=== PATIENT | male | born 1960 | race Caucasian/White ===

== ENCOUNTER → 2017-03-17 | Outpatient (CLI) | payer OTHER ==
[~2017-03-17] MED LIST: CARI350T28 PO; LRT5 PO
--- NOTE | 2017-03-17 09:33 | DIAGNOSTIC IMAGING REPORT ---
CHEST 2 VIEWS ROUTINE CLINICAL HISTORY: 56 years-old Male presenting with CHRONIC COUGH. TECHNIQUE: PA and lateral views of the chest were obtained. COMPARISON: 04/20/2010. FINDINGS: Cardiomediastinal silhouette normal. Left basilar opacity and left pleural effusion. Right lung and pleural space clear. No pneumothorax. Osseous structures normal. Upper abdomen normal. IMPRESSION: 1. Left basilar consolidation and left pleural effusion. This is concerning for pneumonia with a parapneumonic effusion. Electronically signed by: Thomas Ch M.D. 03/17/2017 9:32 AM Dictated Date/Time: 03/17/2017 9:31 AM
== END | disposition home or self-care (01) ==
LOC: C.RAD1850 09:23
PROVIDERS: ATTEND Student in an Organized Health Care Education/Training Program
DX: R05 Cough (principal)

== ENCOUNTER 2017-03-23 10:58 | Inpatient (IN) | payer OTHER ==
[~2017-03-23] VITALS: Ht 172.7 cm; Wt 120.0 kg
[2017-03-23] MEDS ORDERED: ONDANSETRON INJ 2 MG/ML 2 ML VIAL IV STA (11:11)
--- NOTE | 2017-03-23 11:30 | DIAGNOSTIC IMAGING REPORT ---
CHEST ONE VIEW PORTABLE CLINICAL HISTORY: Atypical chest pain COMPARISON STUDY: 03/17/2017 FINDINGS: The cardiac and be spinal contours remain stable. There is a persistent left pleural effusion with associated left lower lobe airspace opacities with air bronchograms.[ The right lung remains clear. IMPRESSION: Persistent left pleural effusion with associated left lower lobe airspace opacities and air bronchograms Electronically signed by: Juan Joe M.D. 03/23/2017 11:29 AM Dictated Date/Time: 03/23/2017 11:28 AM
[2017-03-23 11:40] LABS: BASO % 1.2 %; BASO ABS # 0.04 K/uL (0-0.2); EOS % 1.2 %; EOS ABS # 0.04 K/uL (0-0.5); HEMATOCRIT 36.5 % (42-52); LYMPH % 21.9 %; LYMPH ABS # 0.73 K/uL (1.2-3.4); MEAN CORPUSCULAR HEMOGLOBIN 40.2 pg (25-34); MEAN CORPUSCULAR HGB CONC 35.6 g/dl (32-36); MONO % 7.5 %; MONO ABS # 0.25 K/uL (0.11-0.59); NEUT % 68.2 %; NEUT ABS # 2.28 K/uL (1.4-6.5); PLATELET COUNT 198 K/uL (130-400); RED CELL DISTRIBUTION WIDTH CV 14.1 % (11.5-14.5); RED CELL DISTRIBUTION WIDTH SD 58.8 fL (36.4-46.3); WHITE BLOOD COUNT 3.34 K/uL (4.8-10.8)
--- NOTE | 2017-03-23 11:55 | EMERGENCY ROOM VISIT NOTE ---
History First contact with patient: 11:05 Chief Complaint: CHEST PAIN Stated Complaint: Epigastric Pain Nursing Triage Summary: pt arrived als from home reported chest pain started at 0730 epigastric into back pt reports cough for a "very long time" seen by pcp last week sob while at rest given [address] route History of Present Illness The patient is a 56 year old male who presents to the Emergency Room with complaints of chest pain that radiates into his back along with epigastric pain. The patient appears somewhat sedate and is slow to answer questions. He reports that he has had a cough for the past 3 weeks and he called off sick from work today. Possibly in one hour after he called off sick he began experiencing chest pain. Nothing seems to make the chest pain better or worse. He was given aspirin by EMS prior to arrival in the emergency department. Review of Systems See HPI for pertinent positives & negatives. A total of 10 systems reviewed and were otherwise negative. Past Medical/Surgical History Medical Problems: (1) Ascites (2) Epigastric abdominal pain Social History Smoking Status: Former Smoker Marital Status: single, Occupation Status: employed Current/Historical Medications Scheduled Albuterol Hfa (Ventolin Hfa), 2-4 PUFFS INH Q6H Physical Exam Vital Signs Date Time Temp Pulse Resp B/P (MAP) Pulse Ox O2 Delivery O2 Flow Rate FiO2 03/23/17 14:09 157/101 03/23/17 14:05 98 23 94 03/23/17 13:35 99 21 97 03/23/17 13:05 94 17 95 03/23/17 13:00 162/97 03/23/17 12:35 98 19 94 03/23/17 12:30 175/92 03/23/17 12:28 96 20 94 03/23/17 12:00 170/92 03/23/17 11:58 97 18 95 03/23/17 11:54 97 Nasal Cannula 2.0 03/23/17 11:54 181/88 03/23/17 11:34 91 Room Air 03/23/17 11:28 98 95 03/23/17 11:24 99 03/23/17 11:11 181/163 03/23/17 11:10 160/98 181/163 03/23/17 11:10 91 Room Air 03/23/17 11:09 160/98 03/23/17 11:08 93 Room Air 03/23/17 11:03 176/104 03/23/17 11:03 36.7 95 18 176/104 93 Room Air Physical Exam GENERAL: Patient is a pale-appearing well-nourished male HEAD: Normocephalic atraumatic EYES: Ocular movements intact pupils equal and react to light OROPHARYNX mucous membranes are moist no exudates present no erythema or edema present NECK: Supple no nuchal rigidity CHEST: Good equal expansion LUNGS: Clear and equal to auscultation CARDIAC: Normal S1 and S2 ABDOMEN: Soft nontender no guarding, distended BACK: No CVA tenderness EXTREMITIES: No pain upon palpation normal muscle strength in all groups no clubbing cyanosis or edema NEURO: Patient is following commands is answering questions appropriately. Alert and oriented x3 Cranial Nerves 2-12 grossly intact Medical Decision & Procedures ER Provider Diagnostic Interpretation: [~ rep ct add3]] CHEST ONE VIEW PORTABLE CLINICAL HISTORY: Atypical chest pain COMPARISON STUDY: 03/17/2017 FINDINGS: The cardiac and be spinal contours remain stable. There is a persistent left pleural effusion with associated left lower lobe airspace opacities with air bronchograms.[ The right lung remains clear. IMPRESSION: Persistent left pleural effusion with associated left lower lobe airspace opacities and air bronchograms Electronically signed by: Juan Joe M.D. 03/23/2017 11:29 AM Dictated Date/Time: 03/23/2017 11:28 AM Laboratory Results Test 03/23/17 11:25 03/23/17 11:32 03/23/17 11:50 03/23/17 13:19 Immature Granulocyte % (Auto) 0.0 % White Blood Count 3.34 K/uL (4.8-10.8) Red Blood Count 3.23 M/uL (4.7-6.1) Hemoglobin 13.0 g/dL (14.0-18.0) Hematocrit 36.5 % (42-52) Mean Corpuscular Volume 113.0 fL (80-100) Mean Corpuscular Hemoglobin 40.2 pg (25-34) Mean Corpuscular Hemoglobin Concent 35.6 g/dl (32-36) Platelet Count 198 K/uL (130-400) Mean Platelet Volume 9.0 fL (7.4-10.4) Neutrophils (%) (Auto) 68.2 % Lymphocytes (%) (Auto) 21.9 % Monocytes (%) (Auto) 7.5 % Eosinophils (%) (Auto) 1.2 % Basophils (%) (Auto) 1.2 % Neutrophils # (Auto) 2.28 K/uL (1.4-6.5) Lymphocytes # (Auto) 0.73 K/uL (1.2-3.4) Monocytes # (Auto) 0.25 K/uL (0.11-0.59) Eosinophils # (Auto) 0.04 K/uL (0-0.5) Basophils # (Auto) 0.04 K/uL (0-0.2) Immature Granulocyte # (Auto) 0.00 K/uL (0.00-0.02) Macrocytosis PRESENT Prothrombin Time 15.4 SECONDS (9.0-12.0) Prothromb Time International Ratio 1.5 (0.9-1.1) Activated Partial Thromboplast Time 32.7 SECONDS (21.0-31.0) Partial Thromboplastin Ratio 1.3 Total Creatine Kinase 94 U/L (39-308) Creatine Kinase MB 1.9 ng/ml (0.5-3.6) Creatine Kinase MB Ratio 2.0 (0-3.0) Troponin I 0.017 ng/ml (0-0.045) Lipase 323 U/L (73-393) Bedside Hemoglobin 12.9 g/dl (14.0-18.0) Bedside Hematocrit 38 % (42-52) Bedside Sodium 134 mEq/L (135-144) Bedside Potassium 3.0 mEq/L (3.3-5.0) Bedside Chloride 90 mEq/L (101-112) Bedside Total CO2 30 mEq/l (24-31) Bedside Blood Urea Nitrogen 4 mg/dl (7-18) Bedside Creatinine 1.0 mg/dl (0.6-1.3) Bedside Glucose (other) 130 mg/dl (70-99) Bedside Ionized Calcium (Alexa) 1.15 mmol/l (1.12-1.32) Influenza Type A Antigen Neg for Influ A (NEG) Influenza Type B Antigen Neg for Influ B (NEG) Monoscreen NEG (NEG) Medications Administered Medications (Trade) Dose Ordered Sig/Myron Route Start Time Stop Time Status Last Admin Dose Admin Ondansetron HCl (Zofran Inj) 4 mg NOW STAT IV 03/23/17 11:11 03/23/17 11:13 DC 03/23/17 11:25 4 MG Cefepime HCl 2000 mg/Dextrose 122 ml @ 200 mls/hr NOW STAT IV 03/23/17 12:00 03/23/17 12:36 DC 03/23/17 12:21 200 MLS/HR Vancomycin HCl (Vancomycin 1gm/ 270ml Nss) 1 gm NOW STAT IV 03/23/17 12:00 03/23/17 12:02 DC 03/23/17 12:25 1 GM Clonidine HCl (Kxjodqur-Aeo-0 0.3mg/24hr Patch) 1 patch NOW STAT TD 03/23/17 12:12 03/23/17 12:13 DC 03/23/17 12:31 1 PATCH Thiamine HCl (Vitamin B-1 Tab) 100 mg NOW STAT PO 03/23/17 12:53 03/23/17 12:55 DC 03/23/17 13:22 100 MG Folic Acid (Folvite Tab) 1 mg NOW STAT PO 03/23/17 12:53 03/23/17 12:55 DC 03/23/17 13:22 1 MG Potassium Chloride (Sarahi Ciel Elix) 40 meq NOW STAT PO 03/23/17 12:53 03/23/17 12:55 DC 03/23/17 13:13 40 MEQ Potassium Chloride (Sarahi Ciel Elix) 40 meq NOW STAT PO 03/23/17 13:20 03/23/17 13:21 DC 03/23/17 13:20 40 MEQ Spironolactone (Aldactone Tab) 100 mg 1416 ONCE PO 03/23/17 14:16 03/23/17 15:43 DC 03/23/17 17:01 100 MG Furosemide (Lasix Tab) 40 mg 1416 ONCE PO 03/23/17 14:16 03/23/17 15:43 DC 03/23/17 17:02 40 MG Medical Decision This is a 56-year-old male that presents emergency department complaining of chest and abdomen pain. Upon arrival to the emergency department patient is diaphoretic and appears to be in distress. This is a 56-year-old male who presents emergency department complaining of chest pain as well as abdominal pain. Patient has pleural effusion on CAT scan that I believe is responsible for his chest pain. In addition the patient has a large amount of ascites. He is a heavy drinker and drinks 3 glasses of Darrel Beam a day due to the large effusion I did discuss the case with the hospitalist service who agreed to admit the patient. Patient was given Zofran in the emergency department.. Impression Primary Impression: Ascites Additional Impressions: Epigastric abdominal pain Pleural effusion Departure Information Dispostion Home / Self-Care Referrals No Doctor, Assigned (PCP) Patient Instructions My [facility] Problem Qualifiers Primary Impression: Ascites Ascites type: other type Qualified Codes: R18.8 - Other ascites
[2017-03-23 11:58] LABS: ALBUMIN 2.9 gm/dl (3.4-5.0); CALCIUM 9.8 mg/dl (8.5-10.1); CREATININE 0.93 mg/dl (0.60-1.40); POTASSIUM 2.9 mmol/L (3.5-5.1)
[2017-03-23] MEDS ORDERED: CEFEPIME IV 2,000 MG in DEXTROSE 5% 100ML 100 ML IV STA (12:00)
[2017-03-23] MEDS ORDERED: VANCOMYCIN 1GM/270ML NSS IV STA (12:00)
[2017-03-23 12:04] LABS: CKMB 1.9 ng/ml (0.5-3.6); TOTAL PROTEIN 8.5 gm/dl (6.4-8.2)
--- NOTE | 2017-03-23 12:05 | DIAGNOSTIC IMAGING REPORT ---
CT ANGIOGRAM OF THE CHEST COMBO CLINICAL HISTORY: Atypical chest pain. COMPARISON STUDY: Chest x-ray dated 03/23/2017. TECHNIQUE: Before and following the IV administration of 119 cc of Optiray 320, CT angiogram of the chest was performed from the thoracic inlet to the upper abdomen utilizing the dissection protocol. Images are reviewed in the axial, sagittal, and coronal planes. 3-D MIPS images are created and assessed. IV contrast was administered without complication. A dose lowering technique was utilized adhering to the principles of ALARA. The examination is degraded by streak artifact from the patient's arms which could not be elevated above the chest as well as by motion. CT DOSE: 4879.21 mGy.cm FINDINGS: Thyroid: Imaged portions of the thyroid gland are normal in size and attenuation. Thoracic aorta: No intramural hematoma is seen on the unenhanced series. There is mild atherosclerotic calcification of the thoracic aorta, which is normal in caliber and demonstrates standard 3-vessel arch anatomy. No dissection is seen. The arch vessels are widely patent. Pulmonary vasculature: The pulmonary trunk is normal in caliber. There are no central filling defects identified in the pulmonary vessels to suggest pulmonary embolus. The pulmonary vessels are not well opacified as this examination was not specifically protocoled to assess for pulmonary emboli. Heart: The heart is normal in size and without pericardial effusion. Lungs and pleural spaces: The trachea and central airways are clear. Mild emphysematous change is suspected. There is a moderate left pleural effusion with associated consolidation. The right lung is clear. Mediastinum: There is no mediastinal lymphadenopathy. Gini: Clear. Axillae: There is no axillary lymphadenopathy. Upper abdomen: The liver is cirrhotic in morphology and heterogeneous attenuation. There is a small to moderate volume of abdominal ascites. The spleen appears enlarged. There is a mildly enlarged lymph node the esophageal hiatus seen image 20 and 33 measuring 1.7 x 1.6 cm. See report of abdominal CT performed concurrently for detailed intra-abdominal findings. Skeletal structures: No lytic or blastic bony lesions are seen. IMPRESSION: 1. Unremarkable CT angiogram of the thoracic aorta. 2. Moderate left pleural effusion with associated consolidation. This likely represent atelectasis. Correlate clinically for evidence of superimposed pneumonia. 3. The right lung is clear. 4. Cirrhotic liver morphology, splenomegaly, and ascites are noted in the upper abdomen. 5. An enlarged lymph node is seen at the esophageal hiatus measuring 1.7 x 1.6 cm. This is of indeterminant significance. 6. Additional findings as above. Electronically signed by: Magan Merrill M.D. 03/23/2017 12:04 PM Dictated Date/Time: 03/23/2017 11:56 AM
--- NOTE | 2017-03-23 12:09 | DIAGNOSTIC IMAGING REPORT ---
HEAD CT NONCONTRAST CT DOSE: HISTORY: Altered mental status. TECHNIQUE: Multiaxial CT images of the head were performed without the use of intravenous contrast. Automated exposure control was utilized for this study. A dose lowering technique was utilized adhering to the principles of ALARA. Comparison: None. Findings: The paranasal sinuses and mastoid air cells are clear. The calvarium and skull base are intact. The ventricles and sulci are within normal limits. There is no mass, hematoma, midline shift, or acute infarct. Impression: No acute intracranial abnormality. Electronically signed by: Jackson Barbosa M.D. 03/23/2017 12:07 PM Dictated Date/Time: 03/23/2017 11:55 AM
[2017-03-23] MEDS ORDERED: CLONIDINE HCL 0.3 MG/24 HR TRANSDERM SYS TD STA (12:12)
[2017-03-23] MEDS ORDERED: VNTHFA/IN INH (12:14)
--- NOTE | 2017-03-23 12:18 | DIAGNOSTIC IMAGING REPORT ---
CT ABD/PELVIS IV CONTRAST ONLY CLINICAL HISTORY: Epigastric pain COMPARISON STUDY: None. TECHNIQUE: Following the IV administration of 119 mL of Optiray-320, CT scan of the abdomen and pelvis was performed from the lung bases to the proximal femurs. Images are reviewed in the axial, sagittal, and coronal planes. IV contrast was administered without complication. A dose lowering technique was utilized adhering to the principles of ALARA. CT DOSE: FINDINGS: Lower chest: There is a moderate left pleural effusion with left lower lobe atelectatic change. Liver: No focal hepatic masses are visualized. Early nodularity of the serosal surface of the liver cannot be excluded. Clinical correlation regards to cirrhosis is recommended. Gallbladder: Unremarkable. Spleen: The spleen is enlarged measuring 15 cm. Spleen is lobulated. Pancreas: Unremarkable. Adrenal glands: Unremarkable. Kidneys: There is symmetric renal cortical enhancement. The kidneys are normal in size without hydronephrosis. Bowel: There are no transition zones to indicate bowel obstruction. No acute inflammatory changes are visualized. Peritoneum: There is a moderate to large volume of ascites. No free intraperitoneal air is visualized. A virus the anterior abdominal wall is slightly limited due to artifact given the patient's distended abdomen. Vasculature: The abdominal aorta is normal in course and caliber. Adenopathy: There are mildly prominent para-aortic, iliac, and common femoral lymph nodes. There is also a prominent lymph node in the right cardiophrenic fat. Pelvic viscera: The bladder, and pelvic viscera are unremarkable. Skeletal structures: No destructive osseous lesions are seen. IMPRESSION: 1. Moderate left pleural effusion with left lower lobe atelectasis/consolidation 2. Possible cirrhotic morphology of the liver. Splenomegaly 3. No evidence of bowel obstruction. No evidence of free air 4. Mildly prominent para-aortic, iliac, and common femoral lymph nodes 5. Moderate to large volume ascites Electronically signed by: Juan Joe M.D. 03/23/2017 12:16 PM Dictated Date/Time: 03/23/2017 12:10 PM
[2017-03-23 12:36] LABS: INFLUENZA B ANTIGEN Neg for Influ B (NEG)
[2017-03-23] MEDS ORDERED: POTASSIUM CHLORIDE 20 MEQ/15 ML UDC PO STA ×2 (12:53→13:20)
[2017-03-23] MEDS ORDERED: THIAMINE HCL 100 MG TAB PO STA (12:53)
[2017-03-23 13:09] LABS: ISTAT IONIZED CALCIUM 1.15 mmol/l (1.12-1.32)
[2017-03-23] MEDS ORDERED: MAGNESIUM SULFATE 1GM / D5W 1 GM in PREMIXED IN D5W 100 ML IV STA (14:03)
[2017-03-23] MEDS ORDERED: MAGNESIUM HYDROXIDE SUSP 30 ML UDC PO PRN (14:15)
[2017-03-23] MEDS ORDERED: ALUMINUM/MAGNESIUM/SIMETH (MAALOX MAX) 30 ML UDC PO PRN (14:15)
[2017-03-23] MEDS ORDERED: ONDANSETRON INJ 2 MG/ML 2 ML VIAL IV PRN (14:15)
[2017-03-23] MEDS ORDERED: ACETAMINOPHEN 325 MG TAB PO PRN (14:15)
[2017-03-23] MEDS ORDERED: POLYETHYLENE (MIRALAX) 17 GM PACK PO PRN (14:15)
[2017-03-23] MEDS ORDERED: SPIRONOLACTONE 100 MG TAB PO ONE (14:16)
[2017-03-23] MEDS ORDERED: FUROSEMIDE 40 MG TAB PO ONE (14:16)
[2017-03-23] MEDS ORDERED: LORAZEPAM 1 MG TAB PO PRN (14:30)
[2017-03-23] MEDS ORDERED: MAGNESIUM SULFATE 1GM / D5W 1 GM BAG ONE (14:30)
[2017-03-23] MEDS ORDERED: CHLORDIAZEPOXIDE 25 MG CAP PO PRN (14:30)
[2017-03-23 14:39] VITALS: BP 179/82; PULSE 103; TEMP 36.8; O2SAT 94; Ht 172.7 cm; Wt 120.0 kg
[2017-03-23] MEDS ORDERED: ALBUTEROL HFA 8 GM INHALER INH PRN (14:45)
--- NOTE | 2017-03-23 14:45 | History and Physical ---
History & Physical Date & Time of Service: Mar 23, 2017 at 14:15 Chief Complaint: Epigastric Pain Primary Care Physician: No Doctor, Assigned History of Present Illness Source: patient, hospital records This is a 56 y/o male with a history of HTN, HLD, gout, and alcohol use who presented to the ED on 03/23 with epigastric pain radiating to the chest and back. The patient states that developed a sharp, 8/10 epigastric pain this morning around 8 am with associated shortness of breath. He denies any alleviating or aggravating factors. The pain then radiated to his chest where he felt a tightness and to his back. He states that he has had intermittent tightness for some time, sometimes associated with a dry cough that he has had for the last 5 months. He notes wheezing sometimes. The patient has been to the doctor several times for this ongoing cough and has completed 2 rounds of antibiotics and one round of prednisone with no relief. He also states that around he developed food poisoning. Since then, he has not been eating much and has lost about 45 pounds in the last month. He has not noticed any increase in his abdominal girth. The patient reports that up until the holidays he had been drinking 2-3 mixed drinks a night, but lately he has cut back to 2-3 drinks a week. He notes that he has had intermittent fevers since his cough started months ago but denies any recently. He also has intermittent post-tussive vomiting, but this morning he did vomit once without coughing. The patient denies chills, sweats, palpitations, claudication, nausea, dysuria, hematuria, urinary retention, diarrhea, paralysis, weakness, numbness and tingling. Past Medical/Surgical History HTN HLD Gout Alcohol use/abuse Family History Diabetes mellitus Myocardial infarction Stroke Social History Smoking Status: Former Smoker (quit 1986) Smokeless Tobacco Use: No Alcohol Use: heavy (had been drinking 2-3 mixed drinks a day until recently) Drug Use: none Marital Status: single, Housing status: lives with roommate Occupational Status: employed Multi-Drug Resistant Organisms History of MDRO: No Allergies Coded Allergies: Venlafaxine (Verified Allergy, Unknown, HIVES, 03/23/17) Home Medications Scheduled Albuterol Hfa (Ventolin Hfa), 2-4 PUFFS INH Q6H Review of Systems Constitutional: +Intermittent fevers, none currently. No chills, No sweats Eyes: No worsening of vision, No eye pain, No diplopia ENT: No hearing loss, No nasal symptoms, No trouble swallowing Respiratory: +Chronic cough x 5 months, intermittent wheezing. SOB. Cardiovascular: +Chest tightness. No claudication, No palpitations Abdomen: +Epigastric pain, vomiting. No nausea Musculoskeletal: No joint pain, No muscle pain, No swelling Genitourinary - Male: No dysuria, No urinary retention, No hematuria Neurologic: No paralysis, No weakness, No numbness/tingling Integumentary: No rash, No itch, No color change Physical Exam Vital Signs Date Time Temp Pulse Resp B/P (MAP) Pulse Ox O2 Delivery O2 Flow Rate FiO2 03/23/17 12:30 175/92 03/23/17 12:28 96 20 94 03/23/17 12:00 170/92 03/23/17 11:58 97 18 95 03/23/17 11:54 97 Nasal Cannula 2.0 03/23/17 11:54 181/88 03/23/17 11:34 91 Room Air 03/23/17 11:28 98 95 03/23/17 11:24 99 03/23/17 11:11 181/163 03/23/17 11:10 160/98 181/163 03/23/17 11:10 91 Room Air 03/23/17 11:09 160/98 03/23/17 11:08 93 Room Air 03/23/17 11:03 176/104 03/23/17 11:03 36.7 95 18 176/104 93 Room Air General appearance: +Obese. Well-developed, well-nourished, no apparent distress Head: Normocephalic, atraumatic Eyes: Normal inspection, PERRL, EOMI ENT: Normal ENT inspection, hearing grossly normal, pharynx normal Neck: Supple, no JVD, trachea midline Respiratory/Chest: +Decreased/absent lung sounds in left base up to mid lung zone, otherwise clear. Lungs clear to auscultation, no respiratory distress Cardiovascular: Regular rate & rhythm, no gallop, no murmur Abdomen/GI: +Distended, ascites. Epigastrium mildly TTP. Normal bowel sounds Extremities/Musculoskeletal: +1+ pitting edema. Normal inspection, no calf tenderness Neurological/Psych: Alert, normal mood/affect, oriented x 3 Skin: Normal color, warm/dry, no rash Diagnostics Laboratory Results Results Past 24 Hours Test 03/23/17 11:25 03/23/17 11:32 03/23/17 11:50 03/23/17 13:19 Range/Units White Blood Count 3.34 4.8-10.8 K/uL Red Blood Count 3.23 4.7-6.1 M/uL Hemoglobin 13.0 14.0-18.0 g/dL Hematocrit 36.5 42-52 % Mean Corpuscular Volume 113.0 80-100 fL Mean Corpuscular Hemoglobin 40.2 25-34 pg Mean Corpuscular Hemoglobin Concent 35.6 32-36 g/dl Platelet Count 198 130-400 K/uL Mean Platelet Volume 9.0 7.4-10.4 fL Neutrophils (%) (Auto) 68.2 % Lymphocytes (%) (Auto) 21.9 % Monocytes (%) (Auto) 7.5 % Eosinophils (%) (Auto) 1.2 % Basophils (%) (Auto) 1.2 % Neutrophils # (Auto) 2.28 1.4-6.5 K/uL Lymphocytes # (Auto) 0.73 1.2-3.4 K/uL Monocytes # (Auto) 0.25 0.11-0.59 K/uL Eosinophils # (Auto) 0.04 0-0.5 K/uL Basophils # (Auto) 0.04 0-0.2 K/uL RDW Standard Deviation 58.8 36.4-46.3 fL RDW Coefficient of Variation 14.1 11.5-14.5 % Immature Granulocyte % (Auto) 0.0 % Immature Granulocyte # (Auto) 0.00 0.00-0.02 K/uL Macrocytosis PRESENT Sodium Level 130 136-145 mmol/L Potassium Level 2.9 3.5-5.1 mmol/L Chloride Level 91 98-107 mmol/L Carbon Dioxide Level 32 21-32 mmol/L Anion Gap 7.0 17.0 16-25 mmol/L Blood Urea Nitrogen 6 7-18 mg/dl Creatinine 0.93 0.60-1.40 mg/dl Est Creatinine Clear Calc Drug Dose 115.0 ml/min Estimated GFR () 107.5 Estimated GFR (Non- 92.7 BUN/Creatinine Ratio 6.4 10-20 Random Glucose 126 70-99 mg/dl Calcium Level 9.8 8.5-10.1 mg/dl Total Bilirubin 3.3 0.2-1 mg/dl Direct Bilirubin 1.6 0-0.2 mg/dl Aspartate Amino Transf (AST/SGOT) 58 15-37 U/L Alanine Aminotransferase (ALT/SGPT) 26 12-78 U/L Alkaline Phosphatase 114 45-117 U/L Total Creatine Kinase 94 39-308 U/L Creatine Kinase MB 1.9 0.5-3.6 ng/ml Creatine Kinase MB Ratio 2.0 0-3.0 Troponin I 0.017 0-0.045 ng/ml Total Protein 8.5 6.4-8.2 gm/dl Albumin 2.9 3.4-5.0 gm/dl Lipase 323 73-393 U/L Bedside Hemoglobin 12.9 14.0-18.0 g/dl Bedside Hematocrit 38 42-52 % Bedside Sodium 134 135-144 mEq/L Bedside Potassium 3.0 3.3-5.0 mEq/L Bedside Chloride 90 101-112 mEq/L Bedside Total CO2 30 24-31 mEq/l Bedside Blood Urea Nitrogen 4 7-18 mg/dl Bedside Creatinine 1.0 0.6-1.3 mg/dl Bedside Glucose (other) 130 70-99 mg/dl Bedside Ionized Calcium (Alexa) 1.15 1.12-1.32 mmol/l Influenza Type A Antigen Neg for Influ A NEG Influenza Type B Antigen Neg for Influ B NEG Monoscreen NEG NEG Test 03/23/17 14:03 Range/Units Diagnostic Radiology Reviewed the following studies and agree with interpretation as follows: CHEST ONE VIEW PORTABLE CLINICAL HISTORY: Atypical chest pain COMPARISON STUDY: 03/17/2017 FINDINGS: The cardiac and be spinal contours remain stable. There is a persistent left pleural effusion with associated left lower lobe airspace opacities with air bronchograms.[ The right lung remains clear. IMPRESSION: Persistent left pleural effusion with associated left lower lobe airspace opacities and air bronchograms CT ANGIOGRAM OF THE CHEST COMBO CLINICAL HISTORY: Atypical chest pain. COMPARISON STUDY: Chest x-ray dated 03/23/2017. TECHNIQUE: Before and following the IV administration of 119 cc of Optiray 320, CT angiogram of the chest was performed from the thoracic inlet to the upper abdomen utilizing the dissection protocol. Images are reviewed in the axial, sagittal, and coronal planes. 3-D MIPS images are created and assessed. IV contrast was administered without complication. A dose lowering technique was utilized adhering to the principles of ALARA. The examination is degraded by streak artifact from the patient's arms which could not be elevated above the chest as well as by motion. CT DOSE: 4879.21 mGy.cm FINDINGS: Thyroid: Imaged portions of the thyroid gland are normal in size and attenuation. Thoracic aorta: No intramural hematoma is seen on the unenhanced series. There is mild atherosclerotic calcification of the thoracic aorta, which is normal in caliber and demonstrates standard 3-vessel arch anatomy. No dissection is seen. The arch vessels are widely patent. Pulmonary vasculature: The pulmonary trunk is normal in caliber. There are no central filling defects identified in the pulmonary vessels to suggest pulmonary embolus. The pulmonary vessels are not well opacified as this examination was not specifically protocoled to assess for pulmonary emboli. Heart: The heart is normal in size and without pericardial effusion. Lungs and pleural spaces: The trachea and central airways are clear. Mild emphysematous change is suspected. There is a moderate left pleural effusion with associated consolidation. The right lung is clear. Mediastinum: There is no mediastinal lymphadenopathy. Gini: Clear. Axillae: There is no axillary lymphadenopathy. Upper abdomen: The liver is cirrhotic in morphology and heterogeneous attenuation. There is a small to moderate volume of abdominal ascites. The spleen appears enlarged. There is a mildly enlarged lymph node the esophageal hiatus seen image 20 and 33 measuring 1.7 x 1.6 cm. See report of abdominal CT performed concurrently for detailed intra-abdominal findings. Skeletal structures: No lytic or blastic bony lesions are seen. IMPRESSION: 1. Unremarkable CT angiogram of the thoracic aorta. 2. Moderate left pleural effusion with associated consolidation. This likely represent atelectasis. Correlate clinically for evidence of superimposed pneumonia. 3. The right lung is clear. 4. Cirrhotic liver morphology, splenomegaly, and ascites are noted in the upper abdomen. 5. An enlarged lymph node is seen at the esophageal hiatus measuring 1.7 x 1.6 cm. This is of indeterminant significance. 6. Additional findings as above. CT ABD/PELVIS IV CONTRAST ONLY CLINICAL HISTORY: Epigastric pain COMPARISON STUDY: None. TECHNIQUE: Following the IV administration of 119 mL of Optiray-320, CT scan of the abdomen and pelvis was performed from the lung bases to the proximal femurs. Images are reviewed in the axial, sagittal, and coronal planes. IV contrast was administered without complication. A dose lowering technique was utilized adhering to the principles of ALARA. CT DOSE: FINDINGS: Lower chest: There is a moderate left pleural effusion with left lower lobe atelectatic change. Liver: No focal hepatic masses are visualized. Early nodularity of the serosal surface of the liver cannot be excluded. Clinical correlation regards to cirrhosis is recommended. Gallbladder: Unremarkable. Spleen: The spleen is enlarged measuring 15 cm. Spleen is lobulated. Pancreas: Unremarkable. Adrenal glands: Unremarkable. Kidneys: There is symmetric renal cortical enhancement. The kidneys are normal in size without hydronephrosis. Bowel: There are no transition zones to indicate bowel obstruction. No acute inflammatory changes are visualized. Peritoneum: There is a moderate to large volume of ascites. No free intraperitoneal air is visualized. A virus the anterior abdominal wall is slightly limited due to artifact given the patient's distended abdomen. Vasculature: The abdominal aorta is normal in course and caliber. Adenopathy: There are mildly prominent para-aortic, iliac, and common femoral lymph nodes. There is also a prominent lymph node in the right cardiophrenic fat. Pelvic viscera: The bladder, and pelvic viscera are unremarkable. Skeletal structures: No destructive osseous lesions are seen. IMPRESSION: 1. Moderate left pleural effusion with left lower lobe atelectasis/consolidation 2. Possible cirrhotic morphology of the liver. Splenomegaly 3. No evidence of bowel obstruction. No evidence of free air 4. Mildly prominent para-aortic, iliac, and common femoral lymph nodes 5. Moderate to large volume ascites HEAD CT NONCONTRAST CT DOSE: HISTORY: Altered mental status. TECHNIQUE: Multiaxial CT images of the head were performed without the use of intravenous contrast. Automated exposure control was utilized for this study. A dose lowering technique was utilized adhering to the principles of ALARA. Comparison: None. Findings: The paranasal sinuses and mastoid air cells are clear. The calvarium and skull base are intact. The ventricles and sulci are within normal limits. There is no mass, hematoma, midline shift, or acute infarct. Impression: No acute intracranial abnormality. EKG Reviewed EKG and agree with interpretation as follows: 97 bpm, NSR, inferior infarct Impression Assessment and Plan 56 y/o male with a history of HTN, HLD, gout, and alcohol use who presented to the ED on 03/23 with epigastric pain radiating to the chest and back. Pt afebrile, VSS on arrival, not hypotensive. Pt was 91% on room air, placed on 2L. CXR shows persistent left pleural effusion with associated LLL airspace opacities. Head CT negative. CTA chest negative for dissection. CT abdomen/ pelvis with large amount of ascites, splenomegaly, and possible cirrhosis. EKG no acute ischemic changes. Sodium 130. Potassium 2.9. Total bilirubin 3.3. Albumin 2.9. Ascites likely secondary to alcoholic cirrhosis -Admit to telemetry -Check coag studies stat to determine need for steroids -Check ammonia -GI consulted for diagnostic/therapeutic paracentesis -Start spironolactone 100 mg PO qd and Lasix 40 mg PO qd -Monitor LFTs -Alcohol withdrawal protocol -Ativan 1 mg PO prn, Librium 25 mg PO TID prn withdrawal symptoms -Pt received thiamine and folate in ED. Will continue thiamine 100 mg PO qd and folate 1 mg PO qd Hyponatremia, hypokalemia -Sodium 130 on admission. Hyponatremia likely secondary to cirrhosis/ascites, continue to monitor -Received KCl 40 mEq PO x 2 doses in ED -Maintain on KCl 20 mEq PO BID for now given Lasix -Mag sulfate 1 gm IV x 1 now, check mag in morning labs -Recheck PRP at 2200 HTN, HLD--stable -Pt denies any home meds DVT prophylaxis -Enoxaparin 40 mg SC q24h -LAUREN Prescott Code Status -Level I, FULL RESUSCITATION STATUS Resident Physician Supervision Note: I was present with the PA - Aminta Gomes - during the history and exam. I discussed the case with the PA and agree with the findings and plan as documented in the note. Any exceptions or clarifications are listed here: 56 y/o M Hx HTN, HPL, gout, ETOH abuse Recent chronic cough that has not responded to therapy, increasing abdominal girth with concomitant weight loss. Developed CP - epigastric, band-like pain radiating around to back. Considerable abdominal distention was noted on abdominal exam and pt was sent for a CT Results are as follows: 1. Moderate left pleural effusion with left lower lobe atelectasis/consolidation 2. Possible cirrhotic morphology of the liver. Splenomegaly 3. No evidence of bowel obstruction. No evidence of free air 4. Mildly prominent para-aortic, iliac, and common femoral lymph nodes 5. Moderate to large volume ascites We suspect that his CP is a result of ascites and compression of the diaphragm and related structures. OE AAO x 3 S1,2 R CTAB Large, taught, distended abdomen - no pain to palpation No CCE No deficits P: The pt is assigned to telemetry due to reported chest pain and concern for ETOH withdrawal. We will obtain serial enzymes and provide analgesics as needed. ETOH withdrawal protocol is applied. Daily thiamine and folate provided. He will need a complete cirrhosis workup and we will schedule a therapeutic and diagnostic paracentesis. Pleural effusion on imaging is likely the result of cirrhosis. We will place him on diuretics regardless. Underlying malignancy is a concern so that any fluid - pleural, ascites - analysis should include cytology. Documented By: Ari Maria Level of Care Telemetry Resuscitation Status FULL RESUSCITATION VTE Prophylaxis VTE Risk Assessment Done? Y/N: Yes Risk Level: Moderate Given or contraindicated: Enoxaparin (Lovenox)SQ, T.E.D. Stockings, SCD's
[2017-03-23 15:52] LABS: INR 1.5 (0.9-1.1); PTT PATIENT 32.7 SECONDS (21.0-31.0)
[2017-03-23] MEDS ORDERED: ENOXAPARIN 40 MG/0.4 ML SYR SQ SCH (16:00)
--- NOTE | 2017-03-23 17:52 | GASTROINTESTINAL CONSULTATION ---
DATE OF CONSULTATION: 03/23/2017 REASON FOR CONSULTATION: New onset ascites and possible cirrhosis. HISTORY OF PRESENT ILLNESS: The patient is a 56-year-old male who has been having a cough for 5 months with some associated wheezing. The patient prior to this for the last 4-5 years was drinking 3-4 mixed drinks a day. Five months ago he started having this unrelenting cough and cut back to about 1 drink a day. He has never had any problems that he is aware of related to his liver. When he presented to the hospital, he had some epigastric pain radiating to the chest and back with this cough. CT scan of the chest showed a left-sided pleural effusion and a large amount of ascites and nodular looking liver on CT scan that suggests cirrhosis. Some blood tests were obtained including hepatitis B serologies and Monospot, Monospot is negative. SIMON is pending along with his hepatitis B serologies. He has never had any alcohol withdrawal symptoms. GI consultation has been requested to help sort out his liver problem. PAST MEDICAL HISTORY: Remarkable for hypertension, hyperlipidemia, gout, alcohol use. FAMILY HISTORY: Positive for diabetes, NC and stroke. SOCIAL HISTORY: The patient is . He is employed. Quit smoking in 1986, was drinking heavily for 4-5 years and cut back 5 months ago. MEDICATIONS: Albuterol inhaler. ALLERGIES: VENLAFAXINE. REVIEW OF SYSTEMS: Positive for persistent cough and some chest tightness, epigastric pain. The remainder is negative. PHYSICAL EXAMINATION: GENERAL: The patient is overweight, in no acute distress. VITAL SIGNS: Blood pressure is 175/92, pulse 96. LUNGS: Showed decreased breath sounds, particularly in the left base. HEART: Showed normal S1 and S2, regular rate and rhythm. ABDOMEN: Very distended and dull to percussion. I was unable to palpate any internal organs. EXTREMITIES: Showed some venous stasis dermatitis, but [id number] edema in the ankles. LABORATORY: Shows white count of 3.34, hemoglobin 13, MCV 113, platelet count 198, BUN is 6, creatinine is 0.93. Total bilirubin is 3.3, direct 1.6, AST is 58, ALT 26, alkaline phosphatase 114. Influenza A and B are negative, mono was negative. IMPRESSION: The patient has likely cirrhosis from alcohol. I plan on ordering some additional tests including hepatitis C, alpha 1 antitrypsin, and iron studies to check for other potential causes of liver disease. He will have both a diagnostic and therapeutic paracentesis tomorrow under ultrasound guidance to check for cytology, cell counts and chemistries. We will continue his Aldactone at 100 and Lasix at 40 mg a day as well as a [address] Simeon will be covering patient tomorrow.
[2017-03-23 20:00] VITALS: BP 165/95; PULSE 98; TEMP 37.4; O2SAT 93
[2017-03-23] MEDS: POTASSIUM CHLORIDE 20 MEQ TABCR PO SCH (20:37)
[2017-03-23 20:51] VITALS: O2SAT 93
[2017-03-23] MEDS ORDERED: NURSING VERBAL MED ORDER ONE (21:30)
[2017-03-23] MEDS ORDERED: HydrALAZINE HCL 20 MG/ML VIAL IV. PRN (21:45)
[2017-03-23 23:13] LABS: CALCIUM 9.5 mg/dl (8.5-10.1); CREATININE 0.9 mg/dl (0.60-1.40); POTASSIUM 3.8 mmol/L (3.5-5.1)
[2017-03-24] VITALS (13 sets, daily range): BP systolic 131–164; BP diastolic 76–99; PULSE 76–103; TEMP 36.6–37.3; O2SAT 92–96
[2017-03-24 06:10] LABS: HEMATOCRIT 34.2 % (42-52); HEMOGLOBIN 11.9 g/dL (14.0-18.0); MEAN CELL VOLUME 114.4 fL (80-100); MEAN CORPUSCULAR HEMOGLOBIN 39.8 pg (25-34); MEAN CORPUSCULAR HGB CONC 34.8 g/dl (32-36); MEAN PLATELET VOLUME 9.3 fL (7.4-10.4); PLATELET COUNT 176 K/uL (130-400); RED CELL DISTRIBUTION WIDTH CV 14.4 % (11.5-14.5); RED CELL DISTRIBUTION WIDTH SD 60.2 fL (36.4-46.3); WHITE BLOOD COUNT 4.52 K/uL (4.8-10.8)
[2017-03-24 06:40] LABS: ALBUMIN 2.7 gm/dl (3.4-5.0); CALCIUM 9.1 mg/dl (8.5-10.1); CREATININE 0.89 mg/dl (0.60-1.40); POTASSIUM 3.7 mmol/L (3.5-5.1)
--- NOTE | 2017-03-24 08:28 | Hospitalist Progress Note ---
Hospitalist Progress Note Date of Service Mar 24, 2017. (Cassia Mcintosh PA-C) Subjective Pt evaluation today including: conversation w/ patient, physical exam, chart review, lab review, review of studies Pain: None PO Intake: Fair Voiding: no voiding problems The patient was seen and examined this morning. Pt reports doing better since having paracentesis this morning ( Per nursing 4 L was drawn off). He does not feel as distended at this point and also notes the puncture site continues to drain despite bandaging. He has soaked through two hospital gowns at this point. He denies lightheadedness or dizziness. Pt feels cough is about the same, productive with white/clear mucous at times. - aware that pertussis is being ruled out. Appetite has improved compared to the past month. He notes a weight loss of 45 lbs in 1 month due to eating 1 meal every other day because of nausea/vomiting. ROS: 6 point ROS reviewed and otherwise negative. (Cassia Mcintosh, GEORGI) Objective Vital Signs Date Time Temp Pulse Resp B/P (MAP) Pulse Ox O2 Delivery O2 Flow Rate FiO2 03/24/17 08:06 36.9 76 18 148/76 (100) 96 03/24/17 04:00 94 Room Air 03/24/17 04:00 37.0 90 149/85 (106) 94 Room Air 03/24/17 00:00 37.3 93 160/99 (119) 92 Nasal Cannula 03/24/17 00:00 92 Nasal Cannula 2.0 03/23/17 20:51 93 Room Air 2.0 03/23/17 20:00 37.4 98 22 165/95 (118) 93 Room Air 03/23/17 15:03 102 20 151/94 94 Nasal Cannula 1.5 03/23/17 15:00 36.7 107 23 174/102 94 03/23/17 14:39 36.8 103 20 179/82 94 Nasal Cannula 2.0 03/23/17 14:35 107 23 03/23/17 14:30 174/102 03/23/17 14:09 157/101 03/23/17 14:05 98 23 94 03/23/17 13:35 99 21 97 03/23/17 13:05 94 17 95 03/23/17 13:00 162/97 1/11/18 12:35 98 19 94 03/23/17 12:30 175/92 03/23/17 12:28 96 20 94 03/23/17 12:00 170/92 03/23/17 11:58 97 18 95 03/23/17 11:54 97 Nasal Cannula 2.0 03/23/17 11:54 181/88 03/23/17 11:34 91 Room Air 03/23/17 11:28 98 95 03/23/17 11:24 99 03/23/17 11:11 181/163 03/23/17 11:10 160/98 181/163 03/23/17 11:10 91 Room Air 03/23/17 11:09 160/98 03/23/17 11:08 93 Room Air 03/23/17 11:03 176/104 03/23/17 11:03 36.7 95 18 176/104 93 Room Air (Cassia Mcintosh PA-C) Physical Exam General Appearance: WD/WN, no apparent distress, + obese Eyes: PERRL, EOMI, + pertinent finding (+ scleral icterus) ENT: hearing grossly normal, pharynx normal Neck: supple, no JVD Respiratory/Chest: no respiratory distress, + pertinent finding (+ absent breath sounds in the left base, + tight air movement throughout in the left, no crackles, rales or wheeze) Cardiovascular: regular rate, rhythm Abdomen: normal bowel sounds, soft, + pertinent finding (nondistended, paracentesis site draining serosanginous fluid, nontender to palpation) Extremities: non-tender, no calf tenderness, + pedal edema (2 + pitting in BLE up to knees) Neurologic/Psychiatric: alert, normal mood/affect, oriented x 3 Skin: normal color, warm/dry (Cassia Mcintosh PA-C) Laboratory Results Last 24 Hours Test 03/23/17 11:25 03/23/17 11:32 03/23/17 11:50 03/23/17 13:19 White Blood Count 3.34 K/uL Red Blood Count 3.23 M/uL Hemoglobin 13.0 g/dL Hematocrit 36.5 % Mean Corpuscular Volume 113.0 fL Mean Corpuscular Hemoglobin 40.2 pg Mean Corpuscular Hemoglobin Concent 35.6 g/dl Platelet Count 198 K/uL Mean Platelet Volume 9.0 fL Neutrophils (%) (Auto) 68.2 % Lymphocytes (%) (Auto) 21.9 % Monocytes (%) (Auto) 7.5 % Eosinophils (%) (Auto) 1.2 % Basophils (%) (Auto) 1.2 % Neutrophils # (Auto) 2.28 K/uL Lymphocytes # (Auto) 0.73 K/uL Monocytes # (Auto) 0.25 K/uL Eosinophils # (Auto) 0.04 K/uL Basophils # (Auto) 0.04 K/uL RDW Standard Deviation 58.8 fL RDW Coefficient of Variation 14.1 % Immature Granulocyte % (Auto) 0.0 % Immature Granulocyte # (Auto) 0.00 K/uL Macrocytosis PRESENT Prothrombin Time 15.4 SECONDS Prothromb Time International Ratio 1.5 Activated Partial Thromboplast Time 32.7 SECONDS Partial Thromboplastin Ratio 1.3 Sodium Level 130 mmol/L Potassium Level 2.9 mmol/L Chloride Level 91 mmol/L Carbon Dioxide Level 32 mmol/L Anion Gap 7.0 mmol/L 17.0 mmol/L Blood Urea Nitrogen 6 mg/dl Creatinine 0.93 mg/dl Est Creatinine Clear Calc Drug Dose 115.0 ml/min Estimated GFR () 107.5 Estimated GFR (Non- 92.7 BUN/Creatinine Ratio 6.4 Random Glucose 126 mg/dl Calcium Level 9.8 mg/dl Total Bilirubin 3.3 mg/dl Direct Bilirubin 1.6 mg/dl Aspartate Amino Transf (AST/SGOT) 58 U/L Alanine Aminotransferase (ALT/SGPT) 26 U/L Alkaline Phosphatase 114 U/L Total Creatine Kinase 94 U/L Creatine Kinase MB 1.9 ng/ml Creatine Kinase MB Ratio 2.0 Troponin I 0.017 ng/ml Total Protein 8.5 gm/dl Albumin 2.9 gm/dl Lipase 323 U/L Bedside Hemoglobin 12.9 g/dl Bedside Hematocrit 38 % Bedside Sodium 134 mEq/L Bedside Potassium 3.0 mEq/L Bedside Chloride 90 mEq/L Bedside Total CO2 30 mEq/l Bedside Blood Urea Nitrogen 4 mg/dl Bedside Creatinine 1.0 mg/dl Bedside Glucose (other) 130 mg/dl Bedside Ionized Calcium (Alexa) 1.15 mmol/l Influenza Type A Antigen Neg for Influ A Influenza Type B Antigen Neg for Influ B Monoscreen NEG Test 03/23/17 15:52 03/23/17 15:55 03/23/17 22:28 03/24/17 05:53 Iron Level 100 mcg/dl Total Iron Binding Capacity 174 mcg/dl Ammonia 48.0 umol/L Hepatitis B Surface Antigen NEG Hepatitis C Antibody NEG Sodium Level 131 mmol/L 131 mmol/L Potassium Level 3.8 mmol/L 3.7 mmol/L Chloride Level 94 mmol/L 93 mmol/L Carbon Dioxide Level 30 mmol/L 29 mmol/L Anion Gap 7.0 mmol/L 9.0 mmol/L Blood Urea Nitrogen 6 mg/dl 5 mg/dl Creatinine 0.90 mg/dl 0.89 mg/dl Est Creatinine Clear Calc Drug Dose 118.8 ml/min 119.4 ml/min Estimated GFR () 111.8 112.3 Estimated GFR (Non- 96.5 96.9 BUN/Creatinine Ratio 6.3 5.9 Random Glucose 91 mg/dl 86 mg/dl Calcium Level 9.5 mg/dl 9.1 mg/dl White Blood Count 4.52 K/uL Red Blood Count 2.99 M/uL Hemoglobin 11.9 g/dL Hematocrit 34.2 % Mean Corpuscular Volume 114.4 fL Mean Corpuscular Hemoglobin 39.8 pg Mean Corpuscular Hemoglobin Concent 34.8 g/dl RDW Standard Deviation 60.2 fL RDW Coefficient of Variation 14.4 % Platelet Count 176 K/uL Mean Platelet Volume 9.3 fL Magnesium Level 1.7 mg/dl Total Bilirubin 3.7 mg/dl Direct Bilirubin 1.6 mg/dl Aspartate Amino Transf (AST/SGOT) 53 U/L Alanine Aminotransferase (ALT/SGPT) 23 U/L Alkaline Phosphatase 88 U/L Total Protein 8.0 gm/dl Albumin 2.7 gm/dl (Cassia Mcintosh, GEORGI) Assessment and Plan 56 y/o male with a history of HTN, HLD, gout, and alcohol use who presented to the ED on 03/23 with epigastric pain radiating to the chest and back. Pt afebrile, VSS on arrival, not hypotensive. Pt was 91% on room air, placed on 2L. CXR shows persistent left pleural effusion with associated LLL airspace opacities. Head CT negative. CTA chest negative for dissection. CT abdomen/ pelvis with large amount of ascites, splenomegaly, and possible cirrhosis. EKG no acute ischemic changes. Sodium 130. Potassium 2.9. Total bilirubin 3.3. Albumin 2.9. Ascites likely secondary to alcoholic cirrhosis - INR = 1.5 - GI on board: Follow alpha 1antitrypsin and hepatitis panel which are in process, monoscreen neg, EBV neg. Iron low Plans for therapeutic and diagnostic paracentesis today - off 4 L, await cytology reports - continue Aldactone 100 mg PO daily and Lasix 40 mg PO daily - still with significant edema in BLE. - 2 grams sodium diet. - Alcohol withdrawal protocol - -Ativan 1 mg PO prn, librium 25 mg Q8H prn - but has not required either benzos for withdrawal since being in hospital. - Continue thiamine 100 mg PO qd and folate 1 mg PO qd - Etoh cessation discussed and encouraged at bedside. Ongoing cough ? Pertussis? - Sputum cytology in process - Continue supportive care with tessalon pearls, cough drops, flutter/incentive spirometry Hyponatremia, - Sodium 131on admission and remains stable, trend with prp - Hyponatremia likely secondary to cirrhosis/ascites Hypokalemia - Repleted upon admission and currently corrected, follow am prp - Maintain on KCl 20 mEq PO BID for now given Lasix HTN - Continue hydralazine IV prn HLD - Pt denies any home meds - Check lipid panel with tomorrows labs DVT ppx: no chemical with INR elevated and plans for paracentesis today, teds/ scds CODE: FULL Disposition: From home, has a room mate, to assist with d/c planning (Cassia Mcintosh, PAMarcusC) i personally examined pt and verified all jackman points rhea Mcintosh PAC belly better but cough persists notes chronic - ongoing 5 months. clear sputum. never bloody never purulent. doesn't get worse when he sleeps, if anything once he's asleep he doesn't notice it weight loss as above vitals noted nad breathing unlabored markedly quiet base to about mid left lung cirrhosis w ascites - s/p paracentesis. etoh cessation, med management; vitamin K given to check for remaining synthetic function cough - has been on zithromax and at least 1 other ten day course of abx - no improvement. suspect relates to L effusion - which probably relates to cirrhosis/ascites, although would probably expect more R or b/l - will ask for thoracentesis otherwise as above (Steve Ivey D.O.)
[2017-03-24] MEDS ORDERED: PHYTONADIONE 5 MG TAB PO ONE (08:45)
--- NOTE | 2017-03-24 09:17 | DIAGNOSTIC IMAGING REPORT ---
PARACENTESIS UNDER ULTRASOUND GUIDANCE CLINICAL HISTORY: Abdominal ascites. COMPARISON STUDY: Abdominal CT dated 03/23/2017. PROCEDURE: The risks, benefits, and alternatives to the procedure were discussed with the patient who voiced understanding. Written informed consent was obtained. Following real-time ultrasound localization of a suitable pocket of fluid in the left lower quadrant, the abdomen was prepped and draped in the usual sterile fashion. The skin and soft tissues were anesthetized with 1% lidocaine. The sheathed paracentesis was inserted and approximately 4 liters of straw- colored ascitic fluid was removed by vacuum suction. The procedure was well tolerated and without immediate complication. The patient returned to the medical floor in satisfactory condition. IMPRESSION: Successful ultrasound-guided paracentesis with removal of approximately 4 liters of ascitic fluid. Electronically signed by: Magan Merrill M.D. 03/24/2017 9:16 AM Dictated Date/Time: 03/24/2017 9:15 AM
[2017-03-24] MEDS: POTASSIUM CHLORIDE 20 MEQ TABCR PO SCH ×2 (09:24→20:33)
[2017-03-24] MEDS: THIAMINE HCL 100 MG TAB PO SCH (09:25)
[2017-03-24] MEDS: FUROSEMIDE 40 MG TAB PO SCH (09:25)
[2017-03-24] MEDS: SPIRONOLACTONE 100 MG TAB PO SCH (09:25)
[2017-03-24] MEDS ORDERED: COUGH DROP (SUGAR FREE) LOZ 24 LOZ/1 BOX PO PRN (11:45)
[2017-03-24] MEDS: BENZONATATE 100MG CAP PO SCH ×2 (13:35→20:34)
--- NOTE | 2017-03-24 17:41 | GASTROENTEROLOGY PROGRESS NOTE ---
DATE: 03/24/2017 GASTROENTEROLOGY INPATIENT PROGRESS NOTE HISTORY OF PRESENT ILLNESS: Chart reviewed, patient examined. This is my initial assessment of this patient. The patient has been followed by Dr. Cortes during this hospitalization. The patient with new onset ascites and possible cirrhosis. The patient reports a chronic cough for 5 months with clear sputum production. The patient does consume alcoholic beverages. He has noticed a weight loss over for approximately 40 pounds over the past 4 weeks and during the holidays believes he had food poisoning. CT scan suggests a left-sided pleural effusion with a large amount of ascites and nodular-looking liver on CT scan that suggests cirrhosis. So far, to date, many of the serologies are all unrevealing. The patient underwent paracentesis today and this revealed 288 white cells of which 14.6% are polynuclear. These findings do not meet criteria for SBP. Cultures showed Gram stain with many white blood cells but no organisms seen and cultures are pending at this time. LABORATORY DATA: His other laboratories show BUN and creatinine of 5 and 0.89, sodium is low at 131. Total bilirubin 3.7, direct 1.6; AST 53, ALT 23, alkaline phosphatase 88, his serum iron is 100 with a TIBC of 174 and serology today show no evidence for surface antigen positivity, hepatitis C is negative and mono screen negative. Others are pending at this time including SIMON, anti-smooth muscle and LKM. His white count today is 4.5, hemoglobin 11.9, and platelets are 176,000. RDW is 12.0. His sed rate is elevated at 39. IMAGING DATA: Imaging from paracentesis today reports 4 liters of fluid removed. PHYSICAL EXAMINATION: VITAL SIGNS: Today - blood pressure 144/84, afebrile 37.0, heart rate 92, respirations 20, 92% on room air. GENERAL: Today, the patient is awake, alert and oriented x3. HEENT: Sclerae minimally tear. Oral mucosa is moist. HEART: Normal S1, S2. LUNGS: Clear to auscultation. ABDOMEN: Obese without tenderness, rebound or guarding. EXTREMITIES: Trace to +1 edema. There are positive bowel sounds. RECTAL: Deferred. IMPRESSION: The patient with significant weight loss, chronic cough with sputum production. The source of the patient's ongoing respiratory illness is unclear. He takes no chronic medications, although has a history of hypertension, gout, and alcohol use. Regarding his liver, will await the final results of culture and other serum markers that are pending at this time. The most likely source of the patient's ascites may be alcohol related. However, the source of the patient's significant respiratory illness, weight loss and upper abdominal symptoms with nausea and vomiting are unclear. He does not use non-steroidal anti-inflammatory drugs to suggest peptic ulcer disease. Over the next several days, it may be reasonable to consider upper endoscopy for his weight loss and to assess for varices. Ultimately, colonoscopy if not recently performed should also be considered given the weight loss pattern. Dr. Petersen is covering this weekend for our GI service.
[2017-03-25 00:21] VITALS: BP 130/80; PULSE 90; TEMP 37; O2SAT 93
[2017-03-25 04:29] VITALS: BP 140/84; PULSE 86; TEMP 37; O2SAT 93
[2017-03-25 06:11] LABS: HEMATOCRIT 34.9 % (42-52); MEAN CELL VOLUME 114.4 fL (80-100); MEAN CORPUSCULAR HEMOGLOBIN 39.3 pg (25-34); MEAN CORPUSCULAR HGB CONC 34.4 g/dl (32-36); MEAN PLATELET VOLUME 9.6 fL (7.4-10.4); PLATELET COUNT 156 K/uL (130-400); RED CELL DISTRIBUTION WIDTH CV 14.3 % (11.5-14.5); RED CELL DISTRIBUTION WIDTH SD 60.1 fL (36.4-46.3); WHITE BLOOD COUNT 4.62 K/uL (4.8-10.8)
[2017-03-25 06:19] LABS: INR 1.5 (0.9-1.1)
[2017-03-25 06:41] LABS: ALBUMIN 2.5 gm/dl (3.4-5.0); CALCIUM 8.4 mg/dl (8.5-10.1); CREATININE 0.92 mg/dl (0.60-1.40); POTASSIUM 3.9 mmol/L (3.5-5.1)
[2017-03-25 06:51] LABS: TOTAL PROTEIN 7.5 gm/dl (6.4-8.2)
[2017-03-25 07:38] VITALS: BP 135/83; PULSE 84; TEMP 37; O2SAT 94
[2017-03-25] MEDS: THIAMINE HCL 100 MG TAB PO SCH (09:00)
[2017-03-25] MEDS: BENZONATATE 100MG CAP PO SCH ×2 (09:00→13:41)
[2017-03-25] MEDS: POTASSIUM CHLORIDE 20 MEQ TABCR PO SCH (09:00)
[2017-03-25] MEDS: SPIRONOLACTONE 100 MG TAB PO SCH (09:01)
[2017-03-25] MEDS: FUROSEMIDE 40 MG TAB PO SCH (09:01)
[2017-03-25 09:53] VITALS: BP 135/83; PULSE 84; TEMP 37; O2SAT 94
--- NOTE | 2017-03-25 14:27 | Gastroenterology Progress Note ---
Progress Note Date of Service: Mar 25, 2017 Subjective Pt evaluation today including: conversation w/ patient, physical exam, chart review, lab review, review of studies, review of inpatient medication list CC f/u cirrhosis, ascites HPI No n/v and states good appetite. NO abd pain. Chronic cough but no SOB. Review of Systems Respiratory: No shortness of breath Cardiac: No chest pain Medications Current Inpatient Medications Medications (Trade) Dose Ordered Sig/Myron Route Start Time Stop Time Status Last Admin Dose Admin Acetaminophen (Tylenol Tab) 650 mg Q4H PRN PO 03/23/17 14:15 04/22/17 14:14 Al Hydrox/Mg Hydrox/Simethicone (Maalox Max Susp) 15 ml Q4H PRN PO 03/23/17 14:15 04/22/17 14:14 Magnesium Hydroxide (Milk Of Magnesia Susp) 30 ml Q6H PRN PO 03/23/17 14:15 04/22/17 14:14 Polyethylene (Miralax Powder Packet) 17 gm DAILY PRN PO 03/23/17 14:15 04/22/17 14:14 Ondansetron HCl (Zofran Inj) 4 mg Q6H PRN IV 03/23/17 14:15 04/22/17 14:14 Lorazepam (Ativan Tab) 1 mg ONE PRN PO 03/23/17 14:30 Chlordiazepoxide (Librium Cap) 25 mg TID PRN PO 03/23/17 14:30 04/22/17 14:29 Thiamine HCl (Vitamin B-1 Tab) 100 mg QAM PO 03/24/17 09:00 04/23/17 08:59 03/25/17 09:00 100 MG Folic Acid (Folvite Tab) 1 mg QAM PO 03/24/17 09:00 04/23/17 08:59 03/25/17 09:01 1 MG Spironolactone (Aldactone Tab) 100 mg QAM PO 03/24/17 09:00 04/23/17 08:59 03/25/17 09:01 100 MG Furosemide (Lasix Tab) 40 mg QAM PO 03/24/17 09:00 04/23/17 08:59 03/25/17 09:01 40 MG Potassium Chloride (Klor-Con Tab) 20 meq BID PO 1/11/18 21:00 04/22/17 20:59 03/25/17 09:00 20 MEQ Albuterol (Ventolin Hfa Inhaler) 2 puffs Q6H PRN INH 03/23/17 14:45 04/22/17 14:44 Hydralazine HCl (HydrALAZINE INJ) 10 mg Q4H PRN IV. 03/23/17 21:45 04/22/17 21:44 Benzonatate (Tessalon Perles Cap) 100 mg TID PO 03/24/17 14:00 04/23/17 13:59 03/25/17 13:41 100 MG Menthol (Nice Rosie) 1 rosie Q1H PRN PO 03/24/17 11:45 04/23/17 11:44 Magnesium Oxide (Mag-Ox Tab) 400 mg QAM PO 03/26/17 09:00 04/25/17 08:59 Objective Vital Signs Date Time Temp Pulse Resp B/P (MAP) Pulse Ox O2 Delivery O2 Flow Rate FiO2 03/25/17 10:30 Room Air 03/25/17 09:53 37.0 84 18 94 2.0 03/25/17 08:00 Room Air 03/25/17 07:38 37.0 84 18 135/83 (100) 94 Room Air 03/25/17 04:29 37.0 86 18 140/84 (102) 93 Room Air 03/25/17 04:00 Room Air 03/25/17 00:21 37.0 90 18 130/80 (97) 93 Room Air 03/25/17 00:00 Room Air 03/24/17 20:00 93 Room Air 03/24/17 18:59 37.1 90 20 131/88 (102) 93 Room Air 03/24/17 16:00 92 Room Air 03/24/17 15:10 37.0 92 20 144/84 (104) 92 Room Air Physical Exam General Appearance: WD/WN, no apparent distress Respiratory/Chest: lungs clear, no respiratory distress Cardiovascular: regular rate, rhythm, no murmur, + pertinent finding ( bilateral mild edema) Abdomen: normal bowel sounds, non tender, soft, no organomegaly, no pulsatile mass, + distended Neurologic/Psych: alert, normal mood/affect, oriented x 3 Skin: warm/dry Laboratory Results Last 24 Hours Test 03/25/17 05:35 White Blood Count 4.62 K/uL Red Blood Count 3.05 M/uL Hemoglobin 12.0 g/dL Hematocrit 34.9 % Mean Corpuscular Volume 114.4 fL Mean Corpuscular Hemoglobin 39.3 pg Mean Corpuscular Hemoglobin Concent 34.4 g/dl RDW Standard Deviation 60.1 fL RDW Coefficient of Variation 14.3 % Platelet Count 156 K/uL Mean Platelet Volume 9.6 fL Prothrombin Time 15.3 SECONDS Prothromb Time International Ratio 1.5 Sodium Level 131 mmol/L Potassium Level 3.9 mmol/L Chloride Level 95 mmol/L Carbon Dioxide Level 33 mmol/L Anion Gap 3.0 mmol/L Blood Urea Nitrogen 6 mg/dl Creatinine 0.92 mg/dl Est Creatinine Clear Calc Drug Dose 115.6 ml/min Estimated GFR () 108.9 Estimated GFR (Non- 94.0 BUN/Creatinine Ratio 7.0 Random Glucose 83 mg/dl Calcium Level 8.4 mg/dl Magnesium Level 1.6 mg/dl Total Bilirubin 2.7 mg/dl Direct Bilirubin 1.4 mg/dl Aspartate Amino Transf (AST/SGOT) 46 U/L Alanine Aminotransferase (ALT/SGPT) 21 U/L Alkaline Phosphatase 89 U/L Total Protein 7.5 gm/dl Albumin 2.5 gm/dl Triglycerides Level 65 mg/dl Cholesterol Level 73 mg/dl HDL Cholesterol 28 mg/dl LDL Cholesterol, Calculated 32 mg/dl VLDL Cholesterol, Calculated 13 mg/dl Cholesterol/HDL Ratio 2.6 Assessment and Plan ascites--cell count suggests NO infection, culture and cytology pending, serum ascites albumin gradient 1.7 supportive of portal HTN as etiology cirrhosis--likely ETOH, discussed absolute abstinence. Serologies for other etiologies pending are SIMON, ASMA, LKM, EBV, Acute hep panel; [place] is negative, Fe sat 57% borderline high, Check ferritin Elevated MCV-- can be from liver disease but check B12 and folate also portal HTN --EGD at some point to asess for varices hx of n/v and anorexia---EGD wt loss 45 lbs--could be from n/v and anorexia which have improved but with some lymphadenopathy on CT recommend colonoscopy at some point paraesophageal and abdominal mild lymphadenopathy-- EGD/colo at some point cough--per hospitalist Timing of EGD/colo dependent on workup and stability of pulmonary issues.
[2017-03-25] MEDS ORDERED: THM100 PO (15:10)
[2017-03-25] MEDS ORDERED: SPRN100 PO (15:10)
[2017-03-25] MEDS ORDERED: FLV1 PO (15:10)
[2017-03-25] MEDS ORDERED: MGNO400 PO (15:10)
[2017-03-25] MEDS ORDERED: LSX40 PO (15:10)
[2017-03-25] MEDS ORDERED: MCRK20 PO (15:10)
--- NOTE | 2017-03-25 15:17 | Pulmonary Consultation ---
History General Date of Service: Mar 25, 2017. Chief Complaint: chronic cough 5 months, left pleural effusion Stated Complaint: Ascites, Epigastric Abdominal Pain HPI The patient is a 56 year old male who presents to [facility] with complaints of Ascites, Epigastric Abdominal Pain. The patient's primary care provider is No Doctor, Assigned. The rest to evaluate the patient by Dr. Dejesus to evaluate for need for left thoracentesis. 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 The patient is protuberant with a BMI of 40.2 and a weight of 120 kg. The patient states that through a series of three office visits, he was found to have a weight loss of 45 pounds. The patient was admitted for evaluation and found to have a large amount of ascitic fluid as well as a left pleural effusion. He was seen by gastroenterology from the [facility] system and underwent paracentesis with evacuation of 4 L of ascitic fluid. Imaging revealed a large left pleural effusion which most likely is a hydrothorax secondary to ascites from hepatic disease. He denies prior history of pleural fluid and states that he has never had a thoracentesis in the past. Patient does report a five month history of chronic cough of uncertain etiology. He is a nonsmoker and has never smoked other than about four years right out of college. He denies any history of GERD and states that he has never been on a PPI or a H2 sarah. Patient denies fever or chills. He has had some sputum over the last five months but is always been clear with no hemoptysis or colored sputum. He has no history of bronchitis or other acute versus chronic pulmonary disease. He has no history of influenza. He has no prior history of any other pulmonary disease. Historian: patient Review of Systems Constitutional: reports: no symptoms, denies: chills, diaphoresis, fever Eyes: reports: no symptoms ENT: reports: no symptoms, denies: ear pain, loss of hearing, epistaxis Cardiovascular: denies: chest pain, chest pressure, chest tightness, diaphoresis, palpitations Respiratory: reports: cough (chronic and nonproductive for the past five months ), sputum production (very sporadic clear sputum), denies: shortness of breath, stridor, wheezing, cyanosis, hemoptysis Gastrointestinal: reports: as stated in HPI, denies: diarrhea, nausea, vomiting , hematemesis, hematochezia Genitourinary - Male: denies: hematuria Musculoskeletal: denies: arthralgias, myalgias, muscle spasms Integumentary: denies: rash, lesions, change in color (denies prior jaundice) Neurologic: denies: headache, dizziness, general weakness Psychiatric: reports: no symptoms Endocrine: no symptoms Hematologic / Lymphatic: easy bruising Allergic / Immunologic: denies: eczema All Other Symptoms All Other Systems: Reviewed and Negative Past Medical History Past Medical History: Medical Problems: (1) Ascites (2) Epigastric abdominal pain (3) Truncal obesity Past Surgical History: no surgical history Family History Diabetes mellitus Myocardial infarction Stroke Social History Hx Tobacco Use In Past Year?: No (2 PPD until 1986, quit) Smoking Status: Former Smoker (quit 1986 only smoked for four year right out of college) Marital status: single, Housing status: lives with roommate Occupational Status: employed History of MDRO History of MDRO: No Allergies Coded Allergies: Venlafaxine (Verified Allergy, Unknown, HIVES, 03/23/17) Current Medications Reported Home Medications Medications Dose Route/Sig Max Daily Dose Days Date Category Ventolin Hfa (Albuterol) 200 Puffs/66647 Mcg Aers 2-4 Puffs INH Q6H 03/23/17 Reported Physical Physical Exam Vital Signs: Date Time Temp Pulse Resp B/P (MAP) Pulse Ox O2 Delivery O2 Flow Rate FiO2 03/25/17 10:30 Room Air 03/25/17 09:53 37.0 84 18 94 2.0 03/25/17 08:00 Room Air 03/25/17 07:38 37.0 84 18 135/83 (100) 94 Room Air 03/25/17 04:29 37.0 86 18 140/84 (102) 93 Room Air 03/25/17 04:00 Room Air 03/25/17 00:21 37.0 90 18 130/80 (97) 93 Room Air 03/25/17 00:00 Room Air 03/24/17 20:00 93 Room Air 03/24/17 18:59 37.1 90 20 131/88 (102) 93 Room Air 03/24/17 16:00 92 Room Air 03/24/17 15:10 37.0 92 20 144/84 (104) 92 Room Air Weight in Kilograms: 120 GENERAL : No acute distress. Taking a walk about in room EYES: No icterus, gaze conjugate. PERRL NOSE: No evidence of epistaxis. No evidence of septal breech MOUTH: No lesions or candidiasis. Tongue midline NECK: Supple. No obvious JVD LUNGS: CTA B/L, no wheezes, rales or rhonchi. Decreased breath sounds on the left. Diaphragmatic excursion approximately 15 cm. Posterior breath sounds all the way to the base HEART: Regular, rate controlled ABDOMEN: Soft, NT, ND, BS Present. Protuberant EXTREMITIES: No LE edema, pedal pulses intact. NEURO: [facility] Diagnostics Labs Results Past 24 Hours Test 03/25/17 05:35 Range/Units White Blood Count 4.62 4.8-10.8 K/uL Red Blood Count 3.05 4.7-6.1 M/uL Hemoglobin 12.0 14.0-18.0 g/dL Hematocrit 34.9 42-52 % Mean Corpuscular Volume 114.4 80-100 fL Mean Corpuscular Hemoglobin 39.3 25-34 pg Mean Corpuscular Hemoglobin Concent 34.4 32-36 g/dl RDW Standard Deviation 60.1 36.4-46.3 fL RDW Coefficient of Variation 14.3 11.5-14.5 % Platelet Count 156 130-400 K/uL Mean Platelet Volume 9.6 7.4-10.4 fL Prothrombin Time 15.3 9.0-12.0 SECONDS Prothromb Time International Ratio 1.5 0.9-1.1 Sodium Level 131 136-145 mmol/L Potassium Level 3.9 3.5-5.1 mmol/L Chloride Level 95 98-107 mmol/L Carbon Dioxide Level 33 21-32 mmol/L Anion Gap 3.0 3-11 mmol/L Blood Urea Nitrogen 6 7-18 mg/dl Creatinine 0.92 0.60-1.40 mg/dl Est Creatinine Clear Calc Drug Dose 115.6 ml/min Estimated GFR () 108.9 Estimated GFR (Non- 94.0 BUN/Creatinine Ratio 7.0 10-20 Random Glucose 83 70-99 mg/dl Calcium Level 8.4 8.5-10.1 mg/dl Magnesium Level 1.6 1.8-2.4 mg/dl Total Bilirubin 2.7 0.2-1 mg/dl Direct Bilirubin 1.4 0-0.2 mg/dl Aspartate Amino Transf (AST/SGOT) 46 15-37 U/L Alanine Aminotransferase (ALT/SGPT) 21 12-78 U/L Alkaline Phosphatase 89 45-117 U/L Total Protein 7.5 6.4-8.2 gm/dl Albumin 2.5 3.4-5.0 gm/dl Triglycerides Level 65 0-150 mg/dl Cholesterol Level 73 0-200 mg/dl HDL Cholesterol 28 mg/dl LDL Cholesterol, Calculated 32 mg/dl VLDL Cholesterol, Calculated 13 mg/dl Cholesterol/HDL Ratio 2.[address] ABD/PELVIS IV CONTRAST ONLY CLINICAL HISTORY: Epigastric pain COMPARISON STUDY: None. TECHNIQUE: Following the IV administration of 119 mL of Optiray-320, CT scan of the abdomen and pelvis was performed from the lung bases to the proximal femurs. Images are reviewed in the axial, sagittal, and coronal planes. IV contrast was administered without complication. A dose lowering technique was utilized adhering to the principles of ALARA. CT DOSE: FINDINGS: Lower chest: There is a moderate left pleural effusion with left lower lobe atelectatic change. Liver: No focal hepatic masses are visualized. Early nodularity of the serosal surface of the liver cannot be excluded. Clinical correlation regards to cirrhosis is recommended. Gallbladder: Unremarkable. Spleen: The spleen is enlarged measuring 15 cm. Spleen is lobulated. Pancreas: Unremarkable. Adrenal glands: Unremarkable. Kidneys: There is symmetric renal cortical enhancement. The kidneys are normal in size without hydronephrosis. Bowel: There are no transition zones to indicate bowel obstruction. No acute inflammatory changes are visualized. Peritoneum: There is a moderate to large volume of ascites. No free intraperitoneal air is visualized. A virus the anterior abdominal wall is slightly limited due to artifact given the patient's distended abdomen. Vasculature: The abdominal aorta is normal in course and caliber. Adenopathy: There are mildly prominent para-aortic, iliac, and common femoral lymph nodes. There is also a prominent lymph node in the right cardiophrenic fat. Pelvic viscera: The bladder, and pelvic viscera are unremarkable. Skeletal structures: No destructive osseous lesions are seen. IMPRESSION: 1. Moderate left pleural effusion with left lower lobe atelectasis/consolidation 2. Possible cirrhotic morphology of the liver. Splenomegaly 3. No evidence of bowel obstruction. No evidence of free air 4. Mildly prominent para-aortic, iliac, and common femoral lymph nodes 5. Moderate to large volume ascites Electronically signed by: Juan Joe M.D. 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 At this point patient is asymptomatic other than a chronic cough for five months. He has no hypoxia and no acute shortness of breath. * Discussed risks versus benefit and at this point patient defers on any invasive procedure * Would recommend follow-up in the pulmonary office to follow pleural effusion as patient has had a 45 pound weight loss and malignancy has not been ruled out * Recommend discharging on Lasix and spironolactone and follow clinically * When the office opens on Monday, I will schedule an appointment for Mr. Diaz for late next week with the pulmonary office CHRONIC COUGH * Patient noticed the cough approximate five months ago * This may be about the time the patient began to become symptomatic for his ascites and cirrhosis * No prior workup for chronic cough * Cough most likely would not be affected from thoracentesis * Recommend discharging the patient on a PPI and treating for GERD secondary to his protuberant abdomen, truncal obesity, BMI greater than 40 * Will ask pulmonary office to work him up for chronic cough although I suspect this may be GERD as listed above WEIGHT LOSS * Per discussion with patient this may be a result from nausea and vomiting and anorexia * Patient currently is with returned appetite and ate all of his food on his tray today * Recommend continued follow-up with gastroenterology and if ascitic fluid is negative for any etiology, consider diagnostic tap of pleural fluid and interventional testing with gastroenterology * Suggested patient should keep a log of his weight as well as diet and calorie intake and submit at next office visit DVT PROPHYLAXIS * Patient with coagulopathy with a INR 1.5 * Patient ambulating well * Patient most likely being discharged later today Thank you for including us in the care of this patient. We'll sign off at this time and arrange for outpatient follow-up. Please refer to Dr. Ware's addendum for further recommendations.
--- NOTE | 2017-03-25 15:30 | Discharge Instructions ---
Discharge Instructions Date of Service Mar 25, 2017. Admission Reason for Admission: Ascites, Epigastric Abdominal Pain Discharge Discharge Diagnosis / Problem: newly diagnosed cirrhosis Discharge Goals Goal(s): Learn about illness, Diagnostic testing, Therapeutic intervention Activity Recommendations Activity Limitations: resume your previous activity . Instructions / Follow-Up Instructions / Follow-Up cirrhosis -as we discussed, there are "shades of becerra" of cirrhosis as a liver disease. yours does appear on the more severe end of the spectrum, but with proper management and stopping anything that can do damage to your liver, the process should at least stop getting any worse, and because the liver is a remarkable organ, occasionally with time we do see improvement. -first and foremost - stop drinking alcohol entirely. -avoid medications/supplements that are hard on your liver - most notoriously of these is tylenol (acetaminophen) but also, it would be phillips to remind doctors (especially when they're first getting to know you) that you have cirrhosis so it helps influence decision making regarding medications -dietary factors are well known to cause fatty liver, which is another means by which people develop cirrhosis -- the most notorious foods causing fatty liver are (of course) heavily saturated fat foods, and also simple/starchy/sugary carbs. try to minimize these, and instead eat more in terms of fruits and vegetables, lean meats. medications: -we'll have you on a few diuretics to help manage the fluid buildup that comes with cirrhosis lasix (furosemide) 40mg daily aldactone (spironolactone) 100mg daily ---both of these help to pull off the fluid that backs up into your abdomen from the liver; as we discussed, diuretic dosing is definitely an "art meets science" field, in which we initiate dosing that appears to match your body, disease state, and kidney function - but it always requires monitoring and management to strike the balance between "wet" and "dry" -wet - typically is obvious as far as symptoms - you're more swollen in your belly and/or legs, and often feel more short of breath -dry - this is usually subtle until at it's extremes (feeling exceedingly thirsty, tired, sluggish, no urine, muscle cramps, etc) - and so typically it's far safer to "screen" for dry with periodic labwork - we've got a lab slip to check for this (as well as other things) that we'd like you to have checked around monday of this coming week (around 03/29/17) -in addition to that, we've also got you on thiamine (vitamin B1) 100mg daily and folic acid (a "B vitamin cousin") 1mg daily - the reason for this is that when people drink heavily for a while, these vitamins get depleted, and that can potentiate all of the associated alcohol related illnesses (including even nerve and brain problems) -- so we'll have you on these supplements for the indefinite future depending on how you're doing -magnesium and potassium supplements are hopefully just a shorter-term addition to your picture - both of these were low, probably due to all the fluid you'd accumulated diluting things out in your bloodstream - we'll be supplementing them both ( 20meq of potassium a day and 400mg of magnesium) and then checking repeat levels with your labs this coming week - assuming your levels are good, at that point the supplements can be stopped and your levels simply followed -lastly, your red blood cells appeared large on microscopy - in addition to just being directly related to drinking, deficiencies in things like B12 can cause this as well. when we check labs on monday, we'll also be checking B12 levels (and folic acid as well as an iron-related protein called ferritin) to help round out the picture cough -after further review, it really appears that the cough is related to the fluid we're seeing around your lung, and that the fluid around your lung is most likely related to the cirrhosis. while it can be drawn off by needle, the diuretics above will frequently correct the issue, and so if that is the case, then we won't have to do the procedure. if the fluid remains (or if it becomes an important part of the piece of working up your weight loss) then we can easily get things set up. -you'll be following up with pulmonary in the office around the end of this coming week to reassess the situation and determine further if ongoing medications appear to be working, or if the fluid will need to be drained weight loss -while it's highly likely that the weight loss relates to the cirrhosis, obviously we'll want to make sure we're not overlooking anything. in that regard, in addition to following the situation with the fluid as above, and managing the cirrhosis as above, the gastroenterology team believes strongly that an EGD (upper endoscopy) and colonoscopy are warranted in the near future. however, we all feel that it is not emergent - and therefore it makes more sense to manage the situation with the fluid around your lung first, and anticipate a goal of getting the endoscopic tests done in more of a 2-4 week range. Current Hospital Diet Patient's current hospital diet: AHA Diet (Heart Healthy), Low Sodium Diet (2gm Na) Discharge Diet Recommended Diet: Low Sodium Diet (2gm Na) (sodium intake will cause you to retain fluid, which will make it harder to manage the situation with the cirrhosis. try to stay less than 2000mg of sodium a day. you'll find that most sodium DOES NOT come from the salt shaker, most is added to prepackaged foods as a preservative or flavoring agent. learn to read labels for how much sodium is in a serving, and how much food is in a serving size, to try to stay low on sodium and make the fluid part of your situation easier to manage) Pending Studies Studies pending at discharge: no Laboratory Results Lipid Panel Test 03/25/17 05:35 Range/Units Triglycerides Level 65 0-150 mg/dl Cholesterol Level 73 0-200 mg/dl HDL Cholesterol 28 mg/dl Cholesterol/HDL Ratio 2.6 LDL Cholesterol, Calculated 32 mg/dl Medical Emergencies . Who to Call and When: Medical Emergencies: If at any time you feel your situation is an emergency, please call 911 immediately. . Non-Emergent Contact Non-Emergency issues call your: Primary Care Provider . . "Provider Documentation" section prepared by Steve Ivey. . VTE Core Measure Inpt VTE Proph given/why not?: Enoxaparin (Lovenox)MAXWELL, Keysha Chau, SCD's
[2017-03-25 15:34] VITALS: BP 124/78; PULSE 95; TEMP 36.9; O2SAT 92
[2017-03-25 16:13] VITALS: BP 124/78; PULSE 95; TEMP 36.9; O2SAT 92
--- NOTE | 2017-03-25 20:24 | Discharge Summary ---
Discharge Summary Date of Service Mar 25, 2017. Discharge Summary Admission Date: Mar 23, 2017 at 14:24 Discharge Date: Mar 25, 2017 Discharge Disposition: Home Principal Diagnosis: new cirrhosis Procedures: CT abd/pelvis w cirrhotic appearing liver, large spleen, some adenopathy CT chest for dissection wtihout dissection, moderate L pleural effusion and atelectasis CT head negative paracentesis for 4L serologies pending Item Value Date Time Peritoneal Fluid Color YELLOW 03/24/17918 Peritoneal Fluid Appearance CLEAR 03/24/17918 Peritoneal Fluid WBC 288 /uL 03/24/17918 Peritoneal Fluid RBC < 3000 /uL 03/24/17918 Peritoneal Fld Mononuclear WBCs (%) 85.4 % 03/24/17918 Peritoneal Fld Polynuclear WBCs (%) 14.6 % 03/24/17918 Peritoneal Fluid Total Protein 2.3 g/dl 03/24/17918 Peritoneal Fluid Albumin 1.0 g/dl 03/24/17918 Peritoneal Fluid LDH 61 IU 03/24/17918 Peritoneal Fluid Glucose 98 mg/dl 03/24/17 09 Hepatitis B Surface Antigen NEG 03/23/17 1552 Hepatitis C Antibody NEG 03/23/17 1552 Monoscreen NEG 03/23/17 1319 Bordetella pertussis DNA (PCR) Not Detected 03/23/17 1125 Bordetella parapertussis DNA (PCR) Not Detected 03/23/17 1125 Influenza Type A Antigen Neg for Influ A 03/23/17 1150 Influenza Type B Antigen Neg for Influ B 03/23/17 1150 Prothrombin Time 15.3 SECONDS H 03/25/17 0535 Prothromb Time International Ratio 1.5 H 03/25/17 0535 Iron Level 100 mcg/dl 03/23/17 1552 Total Iron Binding Capacity 174 mcg/dl L 03/23/17 1552 Magnesium Level 1.6 mg/dl L 03/25/17 0535 Total Bilirubin 2.7 mg/dl H 03/25/17 0535 Direct Bilirubin 1.4 mg/dl H 03/25/17 0535 Aspartate Amino Transf (AST/SGOT) 46 U/L H 03/25/17 0535 Alanine Aminotransferase (ALT/SGPT) 21 U/L 03/25/17 0535 Alkaline Phosphatase 89 U/L 03/25/17 0535 Triglycerides Level 65 mg/dl 03/25/17 0535 LDL Cholesterol, Calculated 32 mg/dl 03/25/17 0535 Cholesterol Level 73 mg/dl 03/25/17 0535 VLDL Cholesterol, Calculated 13 mg/dl 03/25/17 0535 HDL Cholesterol 28 mg/dl 03/25/17 0535 Cholesterol/HDL Ratio 2.6 03/25/17 0535 Albumin 2.5 gm/dl L 03/25/17 0535 Total Protein 7.5 gm/dl 03/25/17 0535 Ammonia 48.0 umol/L H 03/23/17 1552 Last Resulted CBC 03/25/17 05:35 Last Resulted BMP 03/25/17 05:35 Consultations: GI pulmonary Medication Reconciliation New Medications: Folic Acid (Folic Acid) 1 Mg Tab 1 MG PO QAM, #30 TAB Furosemide (Furosemide) 40 Mg Tab 40 MG PO QAM, #30 TAB Magnesium Oxide (Magnesium-Oxide) 400 Mg Tab 400 MG PO QAM, #30 TAB Potassium Chloride (Klor-Con M20) 20 Meq Tabcr 20 MEQ PO DAILY, #30 TAB Spironolactone (Spironolactone) 100 Mg Tab 100 MG PO QAM, #30 TAB Thiamine HCl (Vitamin B-1) 100 Mg Tab 100 MG PO QAM, #30 TAB Continued Medications: Albuterol Hfa (Ventolin Hfa) 200 Puffs/49125 Mcg Aers 2-4 PUFFS INH Q6H, INHALER Discharge Exam Physical Exam: General Appearance: no apparent distress Eyes: EOMI ENT: hearing grossly normal Neck: trachea midline Respiratory/Chest: no respiratory distress, no accessory muscle use 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 as tested, alert, normal mood/affect Skin: normal color, warm/dry Hospital Course new cirrhosis -most likely EtOH -serologies for other etiologies pending, ferritin to be checked as outpt to better quantify +/- significance of % saturation -strict no EtOH; avoid APAP, avoid high fat and high carb foods to minimize secondary fatty liver risk -paracentesis done -med management as above -bili up some, INR 1.5 and did not correct w 10mg vitamin K -outpt PCP and GI f/u -BMP later this week, mag later this week cough -strongly suspect relates to effusion, strongly suspect effusion relates to cirrhosis/ascites -risks/benefits of thoracentesis discussed and pt/pulm agreed to start w med management and then have outpt f/u - pulmonary later this coming week, can pursue tap as outpt if doesn't resolve; also will consider tap diagnostically given effusion is L sided (can be from cirrhosis, although would expect R sided ) and also due to weight loss -stable for discharge adenopathy -scopes per GI in near future, consider f/u CT scanning depending on scopes weight loss -likely from anorexia from cirrhosis, but scopes as above, probable thoracentesis diagnostically as above macrocytosis, mild anemia -B12, folate this coming week with f/u BMP, mag, and ferritin numerous serologies in relation to cirrhosis pending close PCP, GI, pulmonary f/u Total Time Spent: Greater than 30 minutes This includes examination of the patient, discharge planning, medication reconciliation, and communication with other providers. Discharge Instructions Please refer to the electronic Patient Visit Report (Discharge Instructions) for additional information.
[2017-03-26] MEDS ORDERED: MAGNESIUM OXIDE 400 MG TAB PO SCH (09:00)
[2017-03-27 09:54] LABS: HEPATITIS B CORE IGM TC51854R NON-REACTIVE (NON-REACTIVE)
[2017-03-28 15:29] LABS: ANA SCREEN TC 249X NEGATIVE (NEGATIVE)
== END 2017-03-25 17:55 | disposition home or self-care (01) | DRG 433 ==
LOC: EDBD 10:58 → C.EDC 11:01 → C.2T 14:24 → EDBEDREQSVC 14:46 → ENRESERV 14:48 → C.2T 18:07 → ENRESERV 03-25 08:52 → C.MSN 03-25 10:22
PROVIDERS: ADMIT Internal Medicine; ATTEND Family Medicine
PROC: 0D9W3ZX Drainage of Peritoneum, Percutaneous Approach, Diagnostic (ICD-10-PCS; principal; 2017-03-24)
DX: K70.31 Alcoholic cirrhosis of liver with ascites (principal); J90 Pleural effusion, not elsewhere classified; E87.1 Hypo-osmolality and hyponatremia; K76.6 Portal hypertension; E78.5 Hyperlipidemia, unspecified; M1A.9XX0 Chronic gout, unspecified, without tophus (tophi); Z83.3 Family history of diabetes mellitus; F10.10 Alcohol abuse, uncomplicated; Z87.891 Personal history of nicotine dependence; E87.6 Hypokalemia; R63.0 Anorexia

== ENCOUNTER → 2017-05-05 | Outpatient (CLI) | payer OTHER ==
[~2017-05-05] MED LIST changes: +AFRINWC NAE; -CARI350T28 PO; +FRS/40 PO; -LRT5 PO; +SPIR100T PO; +VNTHFA/IN INH
[2017-05-05 14:39] LABS: PLATELET COUNT 187 K/uL (130-400)
[2017-05-05 14:50] LABS: INR 1.3 (0.9-1.1); PTT PATIENT 31.5 SECONDS (21.0-31.0)
== END | disposition home or self-care (01) ==
LOC: C.LAB1850 13:35
PROVIDERS: ATTEND Internal Medicine Gastroenterology
DX: Z01.812 Encounter for preprocedural laboratory examination (principal)

== ENCOUNTER 2017-05-08 12:01 | Day surgery (SDC) | payer OTHER ==
[~2017-05-08] VITALS: Ht 172.7 cm; Wt 101.2 kg
[2017-05-08] VITALS (8 sets, daily range): BP systolic 141–162; BP diastolic 76–88; PULSE 90–98; TEMP 36.9–37.5; O2SAT 92–97; Ht 172.7 cm; Wt 101.2 kg
[~2017-05-08 12:01] MED LIST changes: -AFRINWC NAE; -FRS/40 PO; -SPIR100T PO
[2017-05-08] MEDS ORDERED: AFRINWC NAE (12:24)
[2017-05-08] MEDS ORDERED: ALBUMIN HUMAN 25% 12.5 GM/50 ML VIAL IV SCH (13:30)
--- NOTE | 2017-05-08 14:00 | Discharge Instructions ---
Discharge Instructions Procedure Procedure Date: May 08, 2017. Reason for visit: Cirrhosis Post Albumin. Discharge Discharge Date: May 08, 2017. Discharge Diagnosis: cirrhosis Instructions Activity Recommendations: 1 Day-May resume regular activity Return to School/Work: no limitations Recommended Home Diet: Resume Previous Diet Allergies Coded Allergies: Venlafaxine (Verified Allergy, Unknown, HIVES, 05/08/17) Olga Higuera Recommendations: Call your doctor if: * Temperature above 101 degrees * Pain not relieved by pain medicine ordered * There is increased drainage or redness from any incision * You have any unanswered questions or concerns. Your Doctors Instructions noted above were prepared by provider Juan Joe. Patient Signature Section: Patient Instructions Signature Page John Diaz Patient (or Guardian) Signature/Date: I have read and understand the instructions given to me by my caregivers. Caregiver/RN/Doctor Signature/Date: The above-named patient and/or guardian has received patient instructions on this date. + Original Patient Signature Page (only) stays with chart. Please make copy for patient.
--- NOTE | 2017-05-08 14:15 | DIAGNOSTIC IMAGING REPORT ---
PARACENTESIS UNDER ULTRASOUND GUIDANCE CLINICAL HISTORY: cirrhosis COMPARISON STUDY: 03/24/2017 FINDINGS: The risks, benefits, and alternatives to the procedure were discussed with the patient. Written informed consent was obtained. Following real-time ultrasound localization, the skin was prepped and draped. Following local anesthesia with Xylocaine, the sheath paracentesis needle was inserted and approximately 5 liters of straw-colored fluid was removed by vacuum suction. The patient tolerated the procedure well and left the department in satisfactory condition. IMPRESSION: Successful ultrasound-guided paracentesis with removal of approximately 5 liters of ascitic fluid. Electronically signed by: Juan Joe M.D. 05/08/2017 2:14 PM Dictated Date/Time: 05/08/2017 2:14 PM
[2017-05-12] MEDS ORDERED: FRS/40 PO (13:19)
[2017-05-12] MEDS ORDERED: SPIR100T PO (13:19)
== END 2017-05-08 16:56 | disposition home or self-care (01) ==
LOC: C.ACU 12:01
PROVIDERS: ATTEND Internal Medicine Gastroenterology
DX: K74.60 Unspecified cirrhosis of liver (principal)

== ENCOUNTER → 2017-05-12 | Day surgery (SDC) | payer OTHER ==
[2017-05-02 10:19] VITALS: Ht 172.7 cm; Wt 101.4 kg
[~2017-05-12] VITALS: Ht 172.7 cm; Wt 101.4 kg
[~2017-05-12] MED LIST changes: +AFRINWC NAE; +FRS/40 PO; +LIDOCAINE HCL 2% 2 ML VIAL (20MG/ML) ONE; +MIDAZOLAM HCL 1 MG/ML 2ML VIAL ONE; +PROPOFOL IV EMULSION 10 MG/ML 20 ML VIAL IV ONE; +SPIR100T PO
--- NOTE | 2017-05-12 13:24 | Endo History and Physical ---
History & Physical Date of Service: May 12, 2017. Chief Complaint: Cirrhosis Referring Physician: Dr Salcido History of Present Illness For EGD Past Surgical History Hx Cardiac Surgery: No Hx Internal Defibrillator: No Hx Pacemaker: No Hx Abdominal Surgery: No Hx of Implantable Prosthesis: No Hx Post-Op Nausea and Vomiting: No Hx Cancer Surgery: Yes (skin cancer removed) Hx Thoracic Surgery: No Hx Orthopedic: No Hx Urinary Tract Surgery: No Family History None Social History Smoking Status: Current Some Day Smoker Hx Substance Use: No (marijuana use in ) Hx Alcohol Use: No (quit years ago) Allergies Coded Allergies: Venlafaxine (Verified Allergy, Unknown, HIVES, 05/08/17) Current Medications Reported Home Medications Medications Dose Route/Sig Max Daily Dose Days Date Category Aldactone (Spironolactone) 100 Mg Tab 100 Mg PO DAILY 05/12/17 Reported Lasix (Furosemide) 40 Mg Tab 40 Mg PO DAILY 05/12/17 Reported Afrin 0.05% Nasal [place] (Oxymetazoline Hcl) 1 Btl [place] 1 [place] NELLIE DAILY 05/08/17 Reported Ventolin Hfa (Albuterol) 200 Puffs/49376 [place] 2-4 Puffs INH Q6H PRN 05/02/17 Reported Vital Signs Weight (Kilograms): 101.36 Height (Feet): 5 Height (Inches): 8 Physical Exam General Appearance: + obese Respiratory/Chest: Respiratory effort: no dyspnea Cardiovascular: Apical Impulse: not displaced Heart Auscultation: RRR Abdomen: Inspection & Palpation: soft Assessment and Plan Cirrhosis for EGD
--- NOTE | 2017-05-12 14:12 | Discharge Instructions ---
Endoscopy Patient Instructions Date / Procedure(s) Performed May 12, 2017. EGD Allergy Information Coded Allergies: Venlafaxine (Verified Allergy, Unknown, HIVES, 05/08/17) Discharge Date / Findings May 12, 2017. Minor varices, esophageal nodule Medication Instructions Restart Stopped Medication(s): resume meds Reported Home Medications Medications Dose Route/Sig Max Daily Dose Days Date Category Aldactone (Spironolactone) 100 Mg Tab 100 Mg PO DAILY 05/12/17 Reported Lasix (Furosemide) 40 Mg Tab 40 Mg PO DAILY 05/12/17 Reported Afrin 0.05% Nasal [place] (Oxymetazoline Hcl) 1 Btl [place] 1 [place] NELLIE DAILY 05/08/17 Reported Ventolin Hfa (Albuterol) 200 Puffs/37428 Mcg Aers 2-4 Puffs INH Q6H PRN 05/02/17 Reported Provider Instructions Activity Restrictions - No exercising or heavy lifting for 24 hours. - Do not drink alcohol the day of the procedure. - Do not drive a car or operate machinery until the day after the procedure. - Do not make any important decisions or sign important papers in 24 hours after the procedure. Following Day: - Return to full activity which may include returning to work/school. Diet Start your diet with liquids and light foods (jello, soup, juice, toast). Then eat your usual diet if not nauseated. Treatment For Common After Affects For mild abdominal pain, bloating, or excessive gas: - Rest - Eat lightly - Lie on right side Follow-Up Information Follow-up with DR. SETH as scheduled Anesthesia Information What You Should Know You have had a procedure that required some medicine to reduce anxiety and discomfort. This treatment is called moderate sedation. After receiving the treatment, you may be sleepy, but you will be able to breathe on your own. The effects of the treatment may last for several hours. Follow these instructions along with Activity/Diet recommendations noted above: * Do NOT do anything where dizziness or clumsiness would be dangerous. * Rest quietly at home today, then you can be up and about tomorrow. * Have a responsible person stay with you the rest of today. * You may have had an I.V. today. If so, you may take the dressing off later today. Recommendations Call your doctor if: * Trouble breathing * Continuous vomiting for more than 24 hours * Temperature above 101 degrees * Severe abdominal pain or bloating * Pain not relieved by pain medicine ordered * There is increased drainage or redness from any incision * A large amount of rectal bleeding greater than 2-3 tablespoons. (If you had a polyp/s removed or have hemorrhoids, a small amount of blood - from the rectum is to be expected.) * You have any unanswered questions or concerns. IN THE EVENT OF A SERIOUS EMERGENCY, GO TO THE NEAREST EMERGENCY ROOM Your discharge instructions were prepared by provider Dayday Cortes. Patient Instructions Signature Page John Diaz Patient (or Guardian) Signature/Date: I have read and understand the instructions given to me by my caregivers. Caregiver/RN/Doctor Signature/Date: The above-named patient and/or guardian has received patient instructions on this date. + Original Patient Signature Page (only) stays with chart. Please make copy for patient.
--- NOTE | 2017-05-12 14:16 | GI REPORT ---
Procedure Date: 05/12/2017 2:01 PM Procedure: Upper GI endoscopy Indications: Cirrhosis Medicines: Propofol total dose 120 mg IV, Cetacaine spray Complications: No immediate complications. Estimated Blood Loss: Estimated blood loss: none. Procedure: Pre-Anesthesia Assessment: - Prior to the procedure, a History and Physical was performed, and patient medications, allergies and sensitivities were reviewed. The patient's tolerance of previous anesthesia was reviewed. - The risks and benefits of the procedure and the sedation options and risks were discussed with the patient. All questions were answered and informed consent was obtained. After obtaining informed consent, the endoscope was passed under direct vision. Throughout the procedure, the patient's blood pressure, pulse, and oxygen saturations were monitored continuously. The scope was introduced through the mouth, and advanced to the second part of duodenum. The upper GI endoscopy was accomplished without difficulty. The patient tolerated the procedure well. Findings: The Z-line was regular and was found 40 cm from the incisors. Grade I varices were found in the lower third of the esophagus. The entire examined stomach was normal. A single 5 mm submucosal nodule with a localized distribution was found in the upper third of the esophagus. The examined duodenum was normal. Impression: - Z-line regular, 40 cm from the incisors. - Grade I esophageal varices. - Normal stomach. - Submucosal nodule found in the esophagus. - Normal examined duodenum. - No specimens collected. Recommendation: - Discharge patient to home (ambulatory). - Continue present medications. - Return to GI office as previously scheduled. Dayday Cortes M.D. Dayday Cortes MD 05/12/2017 2:15:56 PM This report has been signed electronically. Note Initiated On: 05/12/2017 2:01 PM I attest to the content of the Intraoperative Record and orders documented therein, exceptions below
[2017-05-12 14:45] VITALS: BP 144/79; PULSE 82; O2SAT 96
--- NOTE | 2017-05-12 14:54 | Anesthesiology Progress Note ---
Anesthesia Post Op Note Date & Time May 12, 2017 at 14:54 Vital Signs Pain Intensity: 0 Vital Signs Past 12 Hours Date Time Temp Pulse Resp B/P (MAP) Pulse Ox O2 Delivery O2 Flow Rate FiO2 05/12/17 14:29 80 20 130/78 (95) 94 Room Air 05/12/17 14:14 86 20 123/72 (89) 95 Room Air 05/12/17 13:24 37.0 85 20 156/95 (115) 96 Room Air Notes Mental Status: alert / awake / arousable, participated in evaluation Nausea / Vomiting: adequately controlled Pain: adequately controlled Airway Patency, RR, SpO2: stable & adequate BP & HR: stable & adequate Hydration State: stable & adequate Anesthetic Complications: no major complications apparent
== END | disposition home or self-care (01) ==
LOC: C.GI 12:48
PROVIDERS: ATTEND Internal Medicine Gastroenterology
DX: K74.60 Unspecified cirrhosis of liver (principal); I85.10 Secondary esophageal varices without bleeding; K22.8 Other specified diseases of esophagus; Z85.828 Personal history of other malignant neoplasm of skin; F17.200 Nicotine dependence, unspecified, uncomplicated; Z88.8 Allergy status to other drugs, medicaments and biological substances; Z79.899 Other long term (current) drug therapy